=== PATIENT | male | born 1985 | race Caucasian/White ===

== ENCOUNTER 2018-08-28 12:34 | Emergency (ER) | payer OTHER ==
[~2018-08-28] VITALS: Ht 162.6 cm; Wt 101.2 kg
[~2018-08-28 12:34] MED LIST: ALBU0.5N2 NEB; ALBUAER3 IN
[2018-08-28] MEDS ORDERED: IPRATROPIUM BROM 0.5 MG/2.5ML INH SOL NEB ONE (14:30)
[2018-08-28] MEDS ORDERED: ALBUTEROL SULF 2.5 MG/0.5ML(0.5%) NEB SOLN NEB ONE (14:30)
[2018-08-28] MEDS ORDERED: methylPREDNISolone SOD SUCC 125 MG/2 ML VL IM ONE (14:30)
[2018-08-28 14:42] VITALS: BP 137/85
== END 2018-08-28 15:10 | disposition home or self-care (01) ==
LOC: ER 12:38
DX: J45.909 Unspecified asthma, uncomplicated (principal)
CPT/HCPCS: 71046; 93005; 94640; 96372; 99283; J2930; J7611; J7644

== ENCOUNTER 2018-11-09 15:30 | Emergency (ER) | payer OTHER ==
[~2018-11-09] VITALS: Ht 162.6 cm; Wt 90.7 kg
[2018-11-09 16:01] VITALS: BP 150/87
[2018-11-09] MEDS ORDERED: ALBUTEROL SULF 2.5 MG/0.5ML(0.5%) NEB SOLN NEB ONE (16:30)
[2018-11-09] MEDS ORDERED: IPRATROPIUM BROM 0.5 MG/2.5ML INH SOL NEB ONE (16:30)
[2018-11-09] MEDS ORDERED: EPINEPHrine HCL 0.5 ML NEB ONE (16:38)
[2018-11-09] MEDS ORDERED: EPINEPHrine HCL 0.5 ML NEB NEB ONE (16:45)
[2018-11-09] MEDS ORDERED: methylPREDNISolone SOD SUCC 125 MG/2 ML VL ONE (17:04)
[2018-11-09] MEDS ORDERED: methylPREDNISolone SOD SUCC 125 MG/2 ML VL IM ONE (17:15)
== END 2018-11-09 17:42 | disposition home or self-care (01) ==
LOC: ER 15:30
DX: J45.901 Unspecified asthma with (acute) exacerbation (principal)
CPT/HCPCS: 71046; 93005; 94640; 96372; 99284; J2930; J7611; J7644

== ENCOUNTER 2021-12-26 21:47 | Inpatient (IN) | payer OTHER ==
[~2021-12-26] VITALS: Ht 152.4 cm; Wt 116.7 kg
[2021-12-26] MEDS ORDERED: methylPREDNISolone SOD SUCC 125 MG/2 ML VL ONE (21:51)
[2021-12-26] MEDS ORDERED: MAGNESIUM SULFATE 1GM/100ML 100 ML IV ONE ×2 (21:56→21:58)
[2021-12-26 22:04] VITALS: BP 120/92
[2021-12-26 22:11] LABS: Basophils # (auto) 0.1 10 ^3/uL (0-0.2); Basophils % (auto) 0.6 % (0.0-2.0); Eosinophils # (auto) 0.4 10 ^3/uL (0-0.8); Eosinophils % (auto) 4.1 % (0.0-7.0); Hematocrit 45.3 % (41.0-53.0); Hemoglobin 15.3 g/dL (13.5-17.5); Lymphocytes # (auto) 1.1 10 ^3/uL (0.4-5.4); Lymphocytes % (auto) 12.6 % (10.0-50.0); Mean Corpuscular Hemoglobin 28.2 pg (28.0-32.0); Mean Corpuscular Hgb Conc. 33.8 g/dL (32.0-36.0); Mean Corpuscular Volume 83.4 fL (80.0-100.0); Monocytes # (auto) 0.7 10 ^3/uL (0-1.3); Monocytes % (auto) 8.4 % (0.0-12.0); Neutrophils # (auto) 6.5 10 ^3/uL (1.6-8.6); Neutrophils % (auto) 74.3 % (37.0-80.0); Red Blood Cells 5.43 10^6/uL (4.5-5.90); Red Cell Distribution Width 14.5 % (11.8-14.3); White Blood Cell 8.7 10^3/uL (4.4-10.8)
[2021-12-26 22:27] LABS: Albumin 3.6 g/dL (3.4-5.0); Calcium 8.5 mg/dL (8.5-10.1); Magnesium 2.2 mg/dL (1.6-2.6); Potassium 4.3 mmol/L (3.5-5.1)
[2021-12-26] MEDS ORDERED: methylPREDNISolone SOD SUCC 125 MG/2 ML VL IV ONE (22:30)
[2021-12-26] MEDS: MAGNESIUM SULFATE 1GM/100ML 100 ML IV SCH ×5 (22:30→22:56)
[2021-12-26 22:32] LABS: Bilirubin, Total 0.6 mg/dL (0.2-1.0); Total Protein 7.2 g/dL (6.4-8.2)
[2021-12-26] MEDS ORDERED: ALBUTEROL SULF 2.5 MG/0.5ML(0.5%) NEB SOLN NEB ONE (23:25)
[2021-12-26] MEDS ORDERED: IPRATROPIUM BROM 0.5 MG/2.5ML INH SOL NEB ONE (23:30)
[2021-12-27] MEDS ORDERED: TEMAZEPAM 15 MG CAP PO PRN (05:15)
[2021-12-27] MEDS ORDERED: NITROGLYCERIN 0.4 MG SL TAB SL PRN (05:15)
[2021-12-27] MEDS ORDERED: ACETAMINOPHEN 325 MG TAB PO PRN (05:15)
[2021-12-27] MEDS ORDERED: ONDANSETRON HCL 4 MG/2 ML VIAL IV PRN (05:15)
[2021-12-27] MEDS ORDERED: MORPHINE SULFATE INJ 2 MG/ml SYRG IV PRN (05:15)
[2021-12-27] MEDS: methylPREDNISolone SOD SUCC 125 MG/2 ML VL IV SCH (10:18)
[2021-12-27] MEDS: PANTOPRAZOLE 40 MG TAB PO SCH (10:18)
[2021-12-27] MEDS: ALBUTEROL SULF 2.5 MG/0.5ML(0.5%) NEB SOLN NEB PRN ×2 (11:53→19:05)
[2021-12-27] MEDS: IPRATROPIUM BROM 0.5 MG/2.5ML INH SOL NEB PRN ×2 (11:53→19:05)
[2021-12-27] MEDS: RIVAROXABAN 20 MG TAB PO SCH (18:23)
[2021-12-27] MEDS: BUDESONIDE (INHALATION) 0.5 MG/2 ML NEB NEB SCH (19:06)
[2021-12-27 22:00] VITALS: BP 130/87
[2021-12-28] MEDS: methylPREDNISolone SOD SUCC 125 MG/2 ML VL IV SCH ×3 (00:19→21:00)
[2021-12-28] MEDS: ALBUTEROL SULF 2.5 MG/0.5ML(0.5%) NEB SOLN NEB SCH ×4 (00:51→18:53)
[2021-12-28] MEDS: IPRATROPIUM BROM 0.5 MG/2.5ML INH SOL NEB SCH ×4 (00:52→18:53)
[2021-12-28] MEDS ORDERED: CHOL400T19 PO (04:03)
[2021-12-28] MEDS ORDERED: RIVA10TA PO (04:03)
[2021-12-28 05:00] VITALS: BP 137/62
[2021-12-28 06:27] LABS: Basophils # (auto) 0 10 ^3/uL (0-0.2); Basophils % (auto) 0.1 % (0.0-2.0); Eosinophils # (auto) 0 10 ^3/uL (0-0.8); Hematocrit 43.7 % (41.0-53.0); Hemoglobin 14.5 g/dL (13.5-17.5); Lymphocytes # (auto) 0.4 10 ^3/uL (0.4-5.4); Lymphocytes % (auto) 4.4 % (10.0-50.0); Mean Corpuscular Hemoglobin 28.1 pg (28.0-32.0); Mean Corpuscular Hgb Conc. 33.2 g/dL (32.0-36.0); Mean Corpuscular Volume 84.6 fL (80.0-100.0); Monocytes # (auto) 0.5 10 ^3/uL (0-1.3); Monocytes % (auto) 4.9 % (0.0-12.0); Neutrophils % (auto) 90.6 % (37.0-80.0); Red Blood Cells 5.17 10^6/uL (4.5-5.90); Red Cell Distribution Width 14.6 % (11.8-14.3)
[2021-12-28] MEDS: BUDESONIDE (INHALATION) 0.5 MG/2 ML NEB NEB SCH ×2 (06:43→18:53)
[2021-12-28 06:47] LABS: BUN/Creatinine Ratio 17.8; Calcium 9.1 mg/dL (8.5-10.1); Potassium 4.7 mmol/L (3.5-5.1)
[2021-12-28 08:47] VITALS: BP 125/70
[2021-12-28] MEDS: AZITHROMYCIN 250 MG TAB PO SCH (10:39)
[2021-12-28] MEDS: KETOROLAC TROMETH 30 MG/ML 1ML VIAL IV PRN (10:40)
[2021-12-28] MEDS: PANTOPRAZOLE 40 MG TAB PO SCH (10:40)
[2021-12-28] MEDS: CHOLECALCIFEROL (VITD3) 2,000 UNIT CAP/TAB PO SCH (10:40)
[2021-12-28 12:03] VITALS: BP 103/64
[2021-12-28 15:59] VITALS: BP 122/74
[2021-12-28] MEDS: RIVAROXABAN 20 MG TAB PO SCH (17:55)
[2021-12-28] MEDS: THROAT LOZENGES(CEPASTAT) MT PRN (21:01)
[2021-12-28 22:00] VITALS: BP 119/58
[2021-12-29] MEDS: ALBUTEROL SULF 2.5 MG/0.5ML(0.5%) NEB SOLN NEB SCH ×4 (00:14→19:31)
[2021-12-29] MEDS: IPRATROPIUM BROM 0.5 MG/2.5ML INH SOL NEB SCH ×4 (00:14→19:31)
[2021-12-29] MEDS: THROAT LOZENGES(CEPASTAT) MT PRN ×2 (01:43→21:55)
[2021-12-29 05:00] VITALS: BP 92/59
[2021-12-29] MEDS: BUDESONIDE (INHALATION) 0.5 MG/2 ML NEB NEB SCH (06:57)
[2021-12-29 09:00] VITALS: BP 108/78
[2021-12-29] MEDS: methylPREDNISolone SOD SUCC 125 MG/2 ML VL IV SCH ×2 (09:08→21:46)
[2021-12-29] MEDS: CHOLECALCIFEROL (VITD3) 2,000 UNIT CAP/TAB PO SCH (09:08)
[2021-12-29] MEDS: AZITHROMYCIN 250 MG TAB PO SCH (09:08)
[2021-12-29] MEDS: PANTOPRAZOLE 40 MG TAB PO SCH (09:08)
[2021-12-29 13:00] VITALS: BP 128/71
[2021-12-29 17:00] VITALS: BP 121/63
[2021-12-29] MEDS: RIVAROXABAN 20 MG TAB PO SCH (18:15)
[2021-12-29 22:00] VITALS: BP 133/81
[2021-12-30] MEDS: BUDESONIDE (INHALATION) 0.5 MG/2 ML NEB NEB SCH ×3 (01:29→19:31)
[2021-12-30] MEDS: IPRATROPIUM BROM 0.5 MG/2.5ML INH SOL NEB SCH ×5 (01:29→23:57)
[2021-12-30] MEDS: ALBUTEROL SULF 2.5 MG/0.5ML(0.5%) NEB SOLN NEB SCH ×5 (01:30→23:58)
[2021-12-30] MEDS: THROAT LOZENGES(CEPASTAT) MT PRN (01:34)
[2021-12-30 05:00] VITALS: BP 112/66
[2021-12-30 09:00] VITALS: BP 118/71
[2021-12-30] MEDS: PANTOPRAZOLE 40 MG TAB PO SCH (09:54)
[2021-12-30] MEDS: methylPREDNISolone SOD SUCC 125 MG/2 ML VL IV SCH ×2 (09:54→22:03)
[2021-12-30] MEDS: CHOLECALCIFEROL (VITD3) 2,000 UNIT CAP/TAB PO SCH (09:54)
[2021-12-30] MEDS: AZITHROMYCIN 250 MG TAB PO SCH (09:55)
[2021-12-30 13:00] VITALS: BP 134/75
[2021-12-30 16:50] VITALS: BP 135/69
[2021-12-30] MEDS: RIVAROXABAN 20 MG TAB PO SCH (17:55)
[2021-12-30 22:00] VITALS: BP 112/67
[2021-12-30] MEDS: KETOROLAC TROMETH 30 MG/ML 1ML VIAL IV PRN (22:03)
[2021-12-31] MEDS: THROAT LOZENGES(CEPASTAT) MT PRN (01:13)
[2021-12-31] MEDS: BUDESONIDE (INHALATION) 0.5 MG/2 ML NEB NEB SCH (06:38)
[2021-12-31] MEDS: IPRATROPIUM BROM 0.5 MG/2.5ML INH SOL NEB SCH ×2 (06:38→11:18)
[2021-12-31] MEDS: ALBUTEROL SULF 2.5 MG/0.5ML(0.5%) NEB SOLN NEB SCH ×2 (06:38→11:18)
[2021-12-31 08:00] VITALS: BP 120/76
[2021-12-31 08:30] VITALS: BP 122/78
[2021-12-31] MEDS: CHOLECALCIFEROL (VITD3) 2,000 UNIT CAP/TAB PO SCH (09:07)
[2021-12-31] MEDS: AZITHROMYCIN 250 MG TAB PO SCH (09:07)
[2021-12-31] MEDS: PANTOPRAZOLE 40 MG TAB PO SCH (09:07)
[2021-12-31] MEDS: methylPREDNISolone SOD SUCC 125 MG/2 ML VL IV SCH (09:08)
[2021-12-31 13:00] VITALS: BP 120/76
[2021-12-31] MEDS ORDERED: GUAI100S6 PO ×3 (13:26→13:28)
[2021-12-31 13:38] VITALS: BP 120/76
== END 2021-12-31 16:24 | disposition home or self-care (01) | DRG 140 ==
LOC: ER 21:47 → EDBD 21:47 → EDUNIT# 21:47 → TELE 12-27 05:22 → TELE-WESTW 12-27 22:05 → WEST WING 12-28 01:26
PROVIDERS: ADMIT Nurse Practitioner; ATTEND Nurse Practitioner Acute Care
PROC: 5A09357 Assistance with Respiratory Ventilation, Less than 24 Consecutive Hours, Continuous Positive Airway Pressure (ICD-10-PCS; principal; 2021-12-27)
DX: J44.1 Chronic obstructive pulmonary disease with (acute) exacerbation (principal); J96.21 Acute and chronic respiratory failure with hypoxia; E66.01 Morbid (severe) obesity due to excess calories; Z20.822 Contact with and (suspected) exposure to COVID-19; Z88.2 Allergy status to sulfonamides; Z91.041 Radiographic dye allergy status; Z83.3 Family history of diabetes mellitus; Z82.3 Family history of stroke; Z90.49 Acquired absence of other specified parts of digestive tract; Z82.41 Family history of sudden cardiac death; Z85.3 Personal history of malignant neoplasm of breast; Z85.038 Personal history of other malignant neoplasm of large intestine; Z68.43 Body mass index [BMI] 50.0-59.9, adult
CPT/HCPCS: 36415; 36600; 71045; 80048; 80053; 82306; 82805; 82962; 83735; 84443; 84484; 85025; 85379; 85652; 86141; 87426; 87501; 93005; 94640; 96374; 96375; G0378; J1885

== ENCOUNTER 2022-02-08 15:15 | Inpatient (IN) | payer OTHER ==
[~2022-02-08] VITALS: Ht 170.2 cm; Wt 115.9 kg
[~2022-02-08 15:15] MED LIST changes: +CHOL400T19 PO; +GUAI100S6 PO; +RIVA10TA PO
[2022-02-08] MEDS ORDERED: ALBUTEROL SULF 2.5 MG/0.5ML(0.5%) NEB SOLN ONE (15:26)
[2022-02-08] MEDS ORDERED: FUROSEMIDE 100 MG/10ML VIAL IV ONE (15:45)
[2022-02-08] MEDS ORDERED: cefTRIAXone 1GM/50ML D5W 50 ML IV ONE (16:15)
[2022-02-08] MEDS ORDERED: methylPREDNISolone SOD SUCC 125 MG/2 ML VL IV ONE (16:15)
[2022-02-08 17:02] LABS: Basophils # (auto) 0.1 10 ^3/uL (0-0.2); Eosinophils # (auto) 0.2 10 ^3/uL (0-0.8); Eosinophils % (auto) 3.3 % (0.0-7.0); Hematocrit 48.2 % (41.0-53.0); Hemoglobin 15.9 g/dL (13.5-17.5); Lymphocytes # (auto) 0.9 10 ^3/uL (0.4-5.4); Mean Corpuscular Hemoglobin 28.1 pg (28.0-32.0); Mean Corpuscular Hgb Conc. 32.9 g/dL (32.0-36.0); Mean Corpuscular Volume 85.4 fL (80.0-100.0); Monocytes # (auto) 0.6 10 ^3/uL (0-1.3); Monocytes % (auto) 9.8 % (0.0-12.0); Neutrophils # (auto) 4.3 10 ^3/uL (1.6-8.6); Neutrophils % (auto) 70.9 % (37.0-80.0); Nucleated Red Blood Cells % 0.2 %; Red Blood Cells 5.64 10^6/uL (4.5-5.90); Red Cell Distribution Width 14.8 % (11.8-14.3); White Blood Cell 6.1 10^3/uL (4.4-10.8)
[2022-02-08 17:19] LABS: Albumin 3.7 g/dL (3.4-5.0); BUN/Creatinine Ratio 7.4; Calcium 8.9 mg/dL (8.5-10.1); Potassium 4.2 mmol/L (3.5-5.1)
[2022-02-08 17:21] LABS: Bilirubin, Total 0.6 mg/dL (0.2-1.0); Total Protein 7.1 g/dL (6.4-8.2)
[2022-02-08 17:21] LABS: Urine Bacteria NONE SEEN /hpf (None Seen); Urine Blood Negative /uL (Negative); Urine Mucus FEW (None Seen); Urine Specific Gravity 1.008 (1.001-1.035); Urine WBC <1 /hpf (0 - 3)
[2022-02-08 18:30] VITALS: BP 109/62
[2022-02-08] MEDS ORDERED: MORPHINE SULFATE INJ 2 MG/ml SYRG IV PRN (21:45)
[2022-02-08] MEDS ORDERED: NITROGLYCERIN 0.4 MG SL TAB SL PRN (21:45)
[2022-02-08] MEDS ORDERED: AZITHROMYCIN 500MG/ 250ML 250 ML IV ONE (21:45)
[2022-02-08] MEDS ORDERED: ACETAMINOPHEN 325 MG TAB PO PRN (21:45)
[2022-02-08] MEDS ORDERED: ONDANSETRON HCL 4 MG/2 ML VIAL IV PRN (21:45)
[2022-02-08] MEDS ORDERED: TEMAZEPAM 15 MG CAP PO PRN (21:45)
[2022-02-08] MEDS: BUDESONIDE (INHALATION) 0.5 MG/2 ML NEB NEB SCH (22:00)
[2022-02-09 04:49] VITALS: BP 114/73
[2022-02-09 05:00] VITALS: BP 114/73
[2022-02-09] MEDS: BUDESONIDE (INHALATION) 0.5 MG/2 ML NEB NEB SCH ×2 (06:35→20:28)
[2022-02-09] MEDS: IPRATROPIUM BROM 0.5 MG/2.5ML INH SOL NEB SCH ×3 (06:35→20:28)
[2022-02-09] MEDS: ALBUTEROL SULF 2.5 MG/0.5ML(0.5%) NEB SOLN NEB SCH ×3 (06:35→20:28)
[2022-02-09 07:12] LABS: BUN/Creatinine Ratio 11.6; Calcium 9.4 mg/dL (8.5-10.1); Potassium 4.2 mmol/L (3.5-5.1)
[2022-02-09 09:00] VITALS: BP 138/79
[2022-02-09] MEDS: PANTOPRAZOLE 40 MG TAB PO SCH (09:56)
[2022-02-09] MEDS: AZITHROMYCIN 500MG/ 250ML 250 ML IV SCH (09:57)
[2022-02-09] MEDS: methylPREDNISolone SOD SUCC 125 MG/2 ML VL IV SCH ×2 (09:58→21:22)
[2022-02-09] MEDS ORDERED: cefTRIAXone 1GM/50ML D5W 50 ML IV ONE (10:45)
[2022-02-09 13:00] VITALS: BP 107/60
[2022-02-09 17:00] VITALS: BP 101/57
[2022-02-09] MEDS: RIVAROXABAN 20 MG TAB PO SCH (19:16)
[2022-02-09 22:00] VITALS: BP 129/71
[2022-02-10 05:00] VITALS: BP 113/76
[2022-02-10 06:28] LABS: BUN/Creatinine Ratio 18.8; Calcium 9.5 mg/dL (8.5-10.1); Potassium 4.7 mmol/L (3.5-5.1)
[2022-02-10] MEDS: ALBUTEROL SULF 2.5 MG/0.5ML(0.5%) NEB SOLN NEB SCH ×3 (06:30→18:52)
[2022-02-10] MEDS: BUDESONIDE (INHALATION) 0.5 MG/2 ML NEB NEB SCH ×2 (06:30→18:53)
[2022-02-10] MEDS: IPRATROPIUM BROM 0.5 MG/2.5ML INH SOL NEB SCH ×3 (06:30→18:52)
[2022-02-10 06:48] LABS: Basophils # (auto) 0 10 ^3/uL (0-0.2); Basophils % (auto) 0.4 % (0.0-2.0); Eosinophils # (auto) 0 10 ^3/uL (0-0.8); Hematocrit 44.5 % (41.0-53.0); Hemoglobin 14.4 g/dL (13.5-17.5); Lymphocytes # (auto) 0.5 10 ^3/uL (0.4-5.4); Lymphocytes % (auto) 6.3 % (10.0-50.0); Mean Corpuscular Hemoglobin 27.5 pg (28.0-32.0); Mean Corpuscular Hgb Conc. 32.4 g/dL (32.0-36.0); Monocytes # (auto) 0.4 10 ^3/uL (0-1.3); Monocytes % (auto) 5.4 % (0.0-12.0); Neutrophils # (auto) 7.3 10 ^3/uL (1.6-8.6); Neutrophils % (auto) 87.9 % (37.0-80.0); Red Blood Cells 5.23 10^6/uL (4.5-5.90); Red Cell Distribution Width 14.9 % (11.8-14.3); White Blood Cell 8.2 10^3/uL (4.4-10.8)
[2022-02-10 09:00] VITALS: BP 115/69
[2022-02-10] MEDS: cefTRIAXone 1GM/50ML D5W 50 ML IV SCH (10:12)
[2022-02-10] MEDS: AZITHROMYCIN 500MG/ 250ML 250 ML IV SCH (10:13)
[2022-02-10] MEDS: methylPREDNISolone SOD SUCC 125 MG/2 ML VL IV SCH ×2 (10:17→22:08)
[2022-02-10] MEDS: PANTOPRAZOLE 40 MG TAB PO SCH (10:18)
[2022-02-10 13:00] VITALS: BP 118/64
[2022-02-10 17:00] VITALS: BP 138/64
[2022-02-10] MEDS: RIVAROXABAN 20 MG TAB PO SCH (19:01)
[2022-02-10 22:00] VITALS: BP 123/57
[2022-02-11 05:00] VITALS: BP 109/64
[2022-02-11 06:10] LABS: Basophils # (auto) 0 10 ^3/uL (0-0.2); Basophils % (auto) 0.2 % (0.0-2.0); Eosinophils # (auto) 0 10 ^3/uL (0-0.8); Hemoglobin 14.4 g/dL (13.5-17.5); Lymphocytes # (auto) 0.6 10 ^3/uL (0.4-5.4); Lymphocytes % (auto) 7.6 % (10.0-50.0); Mean Corpuscular Hemoglobin 27.5 pg (28.0-32.0); Mean Corpuscular Volume 85.7 fL (80.0-100.0); Monocytes # (auto) 0.5 10 ^3/uL (0-1.3); Monocytes % (auto) 5.8 % (0.0-12.0); Neutrophils % (auto) 86.4 % (37.0-80.0); Red Blood Cells 5.25 10^6/uL (4.5-5.90); Red Cell Distribution Width 14.7 % (11.8-14.3); White Blood Cell 8.1 10^3/uL (4.4-10.8)
[2022-02-11 06:27] LABS: BUN/Creatinine Ratio 18.7; Calcium 9.3 mg/dL (8.5-10.1); Potassium 4.3 mmol/L (3.5-5.1)
[2022-02-11 09:00] VITALS: BP 105/54
[2022-02-11] MEDS: methylPREDNISolone SOD SUCC 125 MG/2 ML VL IV SCH (09:39)
[2022-02-11] MEDS: cefTRIAXone 1GM/50ML D5W 50 ML IV SCH (09:40)
[2022-02-11] MEDS: AZITHROMYCIN 500MG/ 250ML 250 ML IV SCH (09:40)
[2022-02-11] MEDS: PANTOPRAZOLE 40 MG TAB PO SCH (09:40)
[2022-02-11] MEDS ORDERED: PRED20TA2 PO (10:26)
[2022-02-11] MEDS ORDERED: AZIT500T66 PO (10:26)
[2022-02-11 12:18] VITALS: BP 105/54
[2022-02-11 13:00] VITALS: BP 125/75
[2022-02-12] MEDS ORDERED: AZITHROMYCIN 250 MG TAB PO SCH (10:00)
== END 2022-02-11 15:27 | disposition home or self-care (01) | DRG 139 ==
LOC: EDBD 15:15 → ER 15:15 → TELE 21:47 → TELE-CENTR 02-09 04:10
PROVIDERS: ADMIT Nurse Practitioner; ATTEND Internal Medicine Pulmonary Disease
PROC: 5A09357 Assistance with Respiratory Ventilation, Less than 24 Consecutive Hours, Continuous Positive Airway Pressure (ICD-10-PCS; principal; 2022-02-08)
DX: J18.9 Pneumonia, unspecified organism (principal); J96.21 Acute and chronic respiratory failure with hypoxia; I50.9 Heart failure, unspecified; J45.901 Unspecified asthma with (acute) exacerbation; E11.9 Type 2 diabetes mellitus without complications; Z20.822 Contact with and (suspected) exposure to COVID-19; J44.0 Chronic obstructive pulmonary disease with (acute) lower respiratory infection; E66.9 Obesity, unspecified; Z82.41 Family history of sudden cardiac death; Z82.49 Family history of ischemic heart disease and other diseases of the circulatory system; Z80.3 Family history of malignant neoplasm of breast; Z68.41 Body mass index [BMI] 40.0-44.9, adult; Z88.2 Allergy status to sulfonamides; Z88.8 Allergy status to other drugs, medicaments and biological substances
CPT/HCPCS: 36415; 36600; 71045; 71250; 80048; 80053; 81001; 82805; 83880; 84484; 85025; 85379; 87081; 87426; 93005; 94640; 94644; 94660; 96365; 96367; 96375; 99291; G0378; J0696

== ENCOUNTER 2022-05-20 10:17 | Inpatient (IN) | payer OTHER ==
[~2022-05-20] VITALS: Ht 162.6 cm; Wt 119.0 kg
[~2022-05-20 10:17] MED LIST changes: +AZIT500T66 PO; -GUAI100S6 PO; +PRED20TA2 PO
[2022-05-20] MEDS ORDERED: ALBUTEROL SULF 2.5 MG/0.5ML(0.5%) NEB SOLN NEB ONE (10:30)
[2022-05-20] MEDS ORDERED: IPRATROPIUM BROM 0.5 MG/2.5ML INH SOL NEB ONE (10:30)
[2022-05-20] MEDS ORDERED: methylPREDNISolone SOD SUCC 125 MG/2 ML VL IV ONE ×2 (10:45→11:15)
[2022-05-20 10:56] LABS: Basophils # (auto) 0.1 10 ^3/uL (0-0.2); Eosinophils # (auto) 0.4 10 ^3/uL (0-0.8); Hemoglobin 14.1 g/dL (13.5-17.5); Mean Corpuscular Hemoglobin 26.9 pg (28.0-32.0); Monocytes # (auto) 0.7 10 ^3/uL (0-1.3); Neutrophils # (auto) 6.9 10 ^3/uL (1.6-8.6)
[2022-05-20 10:58] LABS: Hematocrit 43.5 % (41.0-53.0); Lymphocytes # (auto) 1.6 10 ^3/uL (0.4-5.4); Lymphocytes % (auto) 16.9 % (10.0-50.0); Mean Corpuscular Hgb Conc. 32.5 g/dL (32.0-36.0); Mean Corpuscular Volume 82.7 fL (80.0-100.0); Monocytes % (auto) 6.7 % (0.0-12.0); Neutrophils % (auto) 71.4 % (37.0-80.0); Nucleated Red Blood Cells % 0.2 %; Red Blood Cells 5.25 10^6/uL (4.5-5.90); Red Cell Distribution Width 13.5 % (11.8-14.3); White Blood Cell 9.7 10^3/uL (4.4-10.8)
[2022-05-20 11:09] LABS: BUN/Creatinine Ratio 10.5 (10.0-20.0); Calcium 8.7 mg/dL (8.5-10.1); Potassium 3.9 mmol/L (3.5-5.1)
[2022-05-20 11:12] LABS: Bilirubin, Total 0.5 mg/dL (0.2-1.0); Total Protein 6.3 g/dL (6.4-8.2)
[2022-05-20] MEDS ORDERED: methylPREDNISolone SOD SUCC 40 MG/ML VL IV ONE (11:30)
[2022-05-20] MEDS ORDERED: MORPHINE SULFATE INJ 2 MG/ml SYRG IV PRN ×2 (15:15)
[2022-05-20] MEDS ORDERED: PANTOPRAZOLE 40 MG/10 ML VIAL INJ IV ONE (15:15)
[2022-05-20] MEDS ORDERED: MAGNESIUM SULFATE 1GM/100ML 100 ML IV ONE (15:15)
[2022-05-20] MEDS ORDERED: ALBUTEROL SULF 2.5 MG/0.5ML(0.5%) NEB SOLN NEB PRN (15:15)
[2022-05-20] MEDS ORDERED: ACETAMINOPHEN 325 MG TAB PO PRN (15:15)
[2022-05-20] MEDS ORDERED: NITROGLYCERIN 0.4 MG SL TAB SL PRN (15:15)
[2022-05-20 16:12] LABS: Cholesterol 129 mg/dL (< 200)
[2022-05-20 16:14] LABS: HDL Cholesterol 47 mg/dL (40-59); LDL Cholesterol 77 mg/dL (< 100); Triglycerides 86 mg/dL (< 150)
[2022-05-20] MEDS: ALBUTEROL SULF 2.5 MG/0.5ML(0.5%) NEB SOLN NEB SCH (18:00)
[2022-05-20] MEDS: IPRATROPIUM BROM 0.5 MG/2.5ML INH SOL NEB PRN (23:11)
[2022-05-20] MEDS: ENOXAPARIN SOD 40 MG/0.4 ML SYRINGE SC SCH ×2 (23:24→23:37)
[2022-05-21] MEDS: HYDROcodone-ACET 5/325MG TAB PO PRN (00:17)
[2022-05-21] MEDS: ALBUTEROL SULF 2.5 MG/0.5ML(0.5%) NEB SOLN NEB SCH ×4 (00:24→19:10)
[2022-05-21 04:00] VITALS: BP 119/66
[2022-05-21 04:13] LABS: Urine Bacteria NONE SEEN /hpf (None Seen); Urine Blood Negative /uL (Negative); Urine Mucus FEW (None Seen); Urine Specific Gravity 1.023 (1.001-1.035); Urine WBC 4 /hpf (0 - 3)
[2022-05-21 04:15] LABS: Alcohol, Urine < 3.0 mg/dL (0-10); Amphetamine Screen, Urine NEGATIVE (NEGATIVE); Barbiturate Scree,Urine NEGATIVE (NEGATIVE); Benzodiazephine Screen, Urine NEGATIVE (NEGATIVE); Cannabinoid Screen, Urine NEGATIVE (NEGATIVE); Cocaine Screen, Urine NEGATIVE (NEGATIVE); Opiate Scree,Urine NEGATIVE (NEGATIVE); Phencyclidine Screen, Urine NEGATIVE (NEGATIVE)
[2022-05-21] MEDS: IPRATROPIUM BROM 0.5 MG/2.5ML INH SOL NEB PRN ×3 (06:27→19:10)
[2022-05-21 06:36] LABS: Basophils # (auto) 0 10 ^3/uL (0-0.2); Basophils % (auto) 0.2 % (0.0-2.0); Eosinophils # (auto) 0 10 ^3/uL (0-0.8); Hematocrit 42.2 % (41.0-53.0); Hemoglobin 14.3 g/dL (13.5-17.5); Lymphocytes # (auto) 0.8 10 ^3/uL (0.4-5.4); Lymphocytes % (auto) 9.6 % (10.0-50.0); Mean Corpuscular Hemoglobin 27.8 pg (28.0-32.0); Mean Corpuscular Hgb Conc. 33.9 g/dL (32.0-36.0); Mean Corpuscular Volume 82.2 fL (80.0-100.0); Monocytes # (auto) 0.6 10 ^3/uL (0-1.3); Monocytes % (auto) 6.4 % (0.0-12.0); Neutrophils # (auto) 7.4 10 ^3/uL (1.6-8.6); Neutrophils % (auto) 83.8 % (37.0-80.0); Red Blood Cells 5.14 10^6/uL (4.5-5.90); Red Cell Distribution Width 13.4 % (11.8-14.3); White Blood Cell 8.8 10^3/uL (4.4-10.8)
[2022-05-21 07:14] LABS: Albumin 3.2 g/dL (3.4-5.0); BUN/Creatinine Ratio 13.2 (10.0-20.0); Bilirubin, Total 0.6 mg/dL (0.2-1.0); Calcium 9.2 mg/dL (8.5-10.1); Total Protein 7.7 g/dL (6.4-8.2)
[2022-05-21] MEDS: methylPREDNISolone SOD SUCC 125 MG/2 ML VL IV SCH ×2 (10:00→22:40)
[2022-05-21] MEDS: ENOXAPARIN SOD 40 MG/0.4 ML SYRINGE SC SCH (10:45)
[2022-05-21] MEDS: PANTOPRAZOLE 40 MG/10 ML VIAL INJ IV SCH (10:45)
[2022-05-21 22:00] VITALS: BP 93/62
[2022-05-21 23:36] VITALS: BP 93/62
[2022-05-22] MEDS: IPRATROPIUM BROM 0.5 MG/2.5ML INH SOL NEB PRN ×4 (00:14→19:32)
[2022-05-22] MEDS: ALBUTEROL SULF 2.5 MG/0.5ML(0.5%) NEB SOLN NEB SCH ×4 (00:14→19:32)
[2022-05-22] MEDS ORDERED: PANT40T PO (00:24)
[2022-05-22] MEDS ORDERED: RIV20T PO (00:24)
[2022-05-22] MEDS ORDERED: FLUT250M2 INH (00:29)
[2022-05-22] MEDS ORDERED: CHOL500033 (00:29)
[2022-05-22] MEDS ORDERED: NYS5LQ (00:29)
[2022-05-22 05:19] VITALS: BP_SYST 111; BP_SYST 166; BP_DIAS 68; BP_DIAS 77
[2022-05-22 09:00] VITALS: BP_SYST 108
[2022-05-22] MEDS: HYDROcodone-ACET 5/325MG TAB PO PRN (09:10)
[2022-05-22] MEDS: methylPREDNISolone SOD SUCC 40 MG/ML VL IV SCH ×2 (10:18→21:19)
[2022-05-22] MEDS: PANTOPRAZOLE 40 MG/10 ML VIAL INJ IV SCH (10:18)
[2022-05-22] MEDS: ENOXAPARIN SOD 40 MG/0.4 ML SYRINGE SC SCH (10:19)
[2022-05-22] MEDS ORDERED: THROAT LOZENGES(CEPASTAT) MT PRN (11:00)
[2022-05-22] MEDS ORDERED: THROAT LOZENGES(CEPASTAT) MT ONE (11:00)
[2022-05-22 13:00] VITALS: BP 123/71
[2022-05-22 16:37] VITALS: BP 130/76
[2022-05-22] MEDS ORDERED: AZITHROMYCIN 250 MG TAB PO ONE (18:15)
[2022-05-22 22:00] VITALS: BP 122/70
[2022-05-23] MEDS: IPRATROPIUM BROM 0.5 MG/2.5ML INH SOL NEB PRN ×3 (00:06→11:37)
[2022-05-23] MEDS: ALBUTEROL SULF 2.5 MG/0.5ML(0.5%) NEB SOLN NEB SCH ×3 (00:06→11:37)
[2022-05-23 05:00] VITALS: BP 103/51
[2022-05-23 09:00] VITALS: BP 124/62
[2022-05-23] MEDS ORDERED: AZITHROMYCIN 250 MG TAB PO SCH (10:00)
[2022-05-23] MEDS: ENOXAPARIN SOD 40 MG/0.4 ML SYRINGE SC SCH (10:50)
[2022-05-23] MEDS: PANTOPRAZOLE 40 MG/10 ML VIAL INJ IV SCH (10:50)
[2022-05-23] MEDS: methylPREDNISolone SOD SUCC 40 MG/ML VL IV SCH (10:50)
[2022-05-23 13:00] VITALS: BP 113/64
[2022-05-23 17:00] VITALS: BP 118/67
== END 2022-05-23 18:49 | disposition home or self-care (01) | DRG 140 ==
LOC: ER 10:17 → EDBD 10:17 → TELE 15:49 → TELE-WESTW 05-21 21:27
PROVIDERS: ADMIT Registered Nurse; ATTEND Internal Medicine
DX: J44.1 Chronic obstructive pulmonary disease with (acute) exacerbation (principal); J96.21 Acute and chronic respiratory failure with hypoxia; I50.9 Heart failure, unspecified; E11.9 Type 2 diabetes mellitus without complications; E66.01 Morbid (severe) obesity due to excess calories; R91.1 Solitary pulmonary nodule; Z20.822 Contact with and (suspected) exposure to COVID-19; J45.901 Unspecified asthma with (acute) exacerbation; Z80.0 Family history of malignant neoplasm of digestive organs; Z87.891 Personal history of nicotine dependence; Z80.3 Family history of malignant neoplasm of breast; Z82.3 Family history of stroke; Z83.3 Family history of diabetes mellitus; Z82.49 Family history of ischemic heart disease and other diseases of the circulatory system; Z82.41 Family history of sudden cardiac death; Z68.41 Body mass index [BMI] 40.0-44.9, adult; Z88.2 Allergy status to sulfonamides; Z91.041 Radiographic dye allergy status; Z71.3 Dietary counseling and surveillance
CPT/HCPCS: 36415; 36600; 71045; 71250; 80053; 80061; 80307; 81001; 82805; 83036; 83880; 84443; 84484; 85025; 85379; 87426; 93005; 94640; 96374; C9113; G0378

== ENCOUNTER 2022-07-27 08:19 | Inpatient (IN) | payer OTHER ==
[~2022-07-27] VITALS: Ht 167.6 cm; Wt 116.5 kg
[~2022-07-27 08:19] MED LIST changes: +CHOL500033; +FLUT250M2 INH; +NYS5LQ; +PANT40T PO; +RIV20T PO
[2022-07-27 08:50] LABS: Eosinophils # (auto) 0.1 10 ^3/uL (0-0.8); Hemoglobin 15.7 g/dL (13.5-17.5); Lymphocytes # (auto) 0.6 10 ^3/uL (0.4-5.4); Monocytes # (auto) 0.3 10 ^3/uL (0-1.3); White Blood Cell 5.2 10^3/uL (4.4-10.8)
[2022-07-27 08:51] LABS: Basophils # (auto) 0.1 10 ^3/uL (0-0.2); Basophils % (auto) 1.4 % (0.0-2.0); Eosinophils % (auto) 1.4 % (0.0-7.0); Hematocrit 46.6 % (41.0-53.0); Lymphocytes % (auto) 11.9 % (10.0-50.0); Mean Corpuscular Hemoglobin 27.1 pg (28.0-32.0); Mean Corpuscular Hgb Conc. 33.6 g/dL (32.0-36.0); Mean Corpuscular Volume 80.5 fL (80.0-100.0); Neutrophils # (auto) 4.1 10 ^3/uL (1.6-8.6); Neutrophils % (auto) 79.3 % (37.0-80.0); Nucleated Red Blood Cells % 0.1 %; Red Blood Cells 5.79 10^6/uL (4.5-5.90); Red Cell Distribution Width 14.2 % (11.8-14.3)
[2022-07-27 09:05] LABS: INR 1.25 (0.9-1.15); Partial Thromboplastin Time 36.1 sec (24.6-33.4)
[2022-07-27] MEDS ORDERED: DexAMETHasone SOD PHOS 10MG/1ML VIAL INJ IV ONE (09:15)
[2022-07-27] MEDS ORDERED: ALBUTEROL SULF 2.5 MG/0.5ML(0.5%) NEB SOLN NEB ONE ×2 (09:15→12:15)
[2022-07-27] MEDS ORDERED: DOXYCYCLINE 100MG/250ML 250 ML IV ONE (09:15)
[2022-07-27] MEDS ORDERED: IPRATROPIUM BROM 0.5 MG/2.5ML INH SOL NEB ONE (09:15)
[2022-07-27 09:36] LABS: Albumin 3.6 g/dL (3.4-5.0); Calcium 8.2 mg/dL (8.5-10.1); Potassium 3.3 mmol/L (3.5-5.1)
[2022-07-27 09:39] LABS: BUN/Creatinine Ratio 9.4 (10.0-20.0); Bilirubin, Total 0.7 mg/dL (0.2-1.0); Total Protein 7.4 g/dL (6.4-8.2)
[2022-07-27] MEDS ORDERED: POTASSIUM CHL 20 Meq TABLET PO ONE (10:00)
[2022-07-27] MEDS ORDERED: MORPHINE SULFATE INJ 2 MG/ml SYRG IV PRN (13:45)
[2022-07-27] MEDS ORDERED: ONDANSETRON HCL 4 MG/2 ML VIAL IV PRN (13:45)
[2022-07-27] MEDS ORDERED: DOCUSATE SOD 100 MG CAP PO PRN (13:45)
[2022-07-27] MEDS ORDERED: ACETAMINOPHEN 325 MG TAB PO PRN (13:45)
[2022-07-27] MEDS ORDERED: NITROGLYCERIN 0.4 MG SL TAB SL PRN (13:45)
[2022-07-27] MEDS: SODIUM CHLOR 0.9% PF (SALINE LOCK) 10ML VIAL/SYR IV SCH (14:00)
[2022-07-27 15:15] VITALS: BP 119/61
[2022-07-27] MEDS: MAGNESIUM SULFATE 1GM/100ML 100 ML IV SCH (21:54)
[2022-07-27] MEDS: HYDROcodone-ACET 5/325MG TAB PO PRN (21:57)
[2022-07-27] MEDS: ALBUTEROL SULF 2.5 MG/0.5ML(0.5%) NEB SOLN NEB PRN (22:08)
[2022-07-27] MEDS: IPRATROPIUM BROM 0.5 MG/2.5ML INH SOL NEB PRN (22:08)
[2022-07-28] MEDS: methylPREDNISolone SOD SUCC 40 MG/ML VL IV SCH ×3 (01:47→22:35)
[2022-07-28] MEDS: Fluticasone-Salmeterol (Advair Diskus 250/50) INHALER IN SCH ×3 (02:17→22:00)
[2022-07-28] MEDS: SODIUM CHLOR 0.9% PF (SALINE LOCK) 10ML VIAL/SYR IV SCH ×4 (02:18→22:35)
[2022-07-28] MEDS ORDERED: MAGNESIUM SULFATE 1GM/100ML 100 ML IV ONE (02:42)
[2022-07-28] MEDS: IPRATROPIUM BROM 0.5 MG/2.5ML INH SOL NEB PRN ×2 (02:48→22:59)
[2022-07-28] MEDS: ALBUTEROL SULF 2.5 MG/0.5ML(0.5%) NEB SOLN NEB PRN ×2 (02:48→22:59)
[2022-07-28] MEDS: MAGNESIUM SULFATE 1GM/100ML 100 ML IV SCH (02:50)
[2022-07-28] MEDS ORDERED: cefTRIAXone 1GM/50ML D5W 50 ML IV ONE (05:15)
[2022-07-28 05:33] LABS: Albumin 3.5 g/dL (3.4-5.0); Calcium 8.9 mg/dL (8.5-10.1); Potassium 4.6 mmol/L (3.5-5.1)
[2022-07-28 05:36] LABS: BUN/Creatinine Ratio 10.9 (10.0-20.0); Bilirubin, Total 0.4 mg/dL (0.2-1.0); Total Protein 7.8 g/dL (6.4-8.2)
[2022-07-28 07:05] LABS: Eosinophils # (auto) 0.1 10 ^3/uL (0-0.8); Hemoglobin 15.6 g/dL (13.5-17.5); Lymphocytes # (auto) 0.6 10 ^3/uL (0.4-5.4); Nucleated Red Blood Cells % 0.1 %
[2022-07-28 07:07] LABS: Basophils # (auto) 0 10 ^3/uL (0-0.2); Basophils % (auto) 0.7 % (0.0-2.0); Eosinophils % (auto) 1.4 % (0.0-7.0); Hematocrit 47.4 % (41.0-53.0); Lymphocytes % (auto) 8.5 % (10.0-50.0); Mean Corpuscular Hemoglobin 26.6 pg (28.0-32.0); Mean Corpuscular Hgb Conc. 32.9 g/dL (32.0-36.0); Mean Corpuscular Volume 80.8 fL (80.0-100.0); Monocytes # (auto) 0.3 10 ^3/uL (0-1.3); Monocytes % (auto) 3.5 % (0.0-12.0); Neutrophils # (auto) 6.3 10 ^3/uL (1.6-8.6); Neutrophils % (auto) 85.9 % (37.0-80.0); Red Blood Cells 5.86 10^6/uL (4.5-5.90); Red Cell Distribution Width 14.7 % (11.8-14.3); White Blood Cell 7.3 10^3/uL (4.4-10.8)
[2022-07-28] MEDS: PANTOPRAZOLE 40 MG TAB PO SCH (10:33)
[2022-07-28] MEDS: DOXYCYCLINE 100MG/250ML 250 ML IV SCH ×2 (11:30→22:35)
[2022-07-28] MEDS: RIVAROXABAN 20 MG TAB PO SCH (11:31)
[2022-07-28 11:36] VITALS: BP 127/77
[2022-07-28 13:00] VITALS: BP 126/72
[2022-07-28 17:00] VITALS: BP 131/75
[2022-07-28 22:00] VITALS: BP 125/83
[2022-07-28] MEDS: NYSTATIN TOPICAL POWDER 15GM TOP SCH (22:35)
[2022-07-28] MEDS: HYDROcodone-ACET 5/325MG TAB PO PRN (23:48)
[2022-07-29 05:00] VITALS: BP 111/61
[2022-07-29] MEDS: SODIUM CHLOR 0.9% PF (SALINE LOCK) 10ML VIAL/SYR IV SCH ×3 (06:40→22:09)
[2022-07-29 08:48] VITALS: BP 122/68
[2022-07-29] MEDS: Fluticasone-Salmeterol (Advair Diskus 250/50) INHALER IN SCH ×2 (10:00→22:00)
[2022-07-29] MEDS: methylPREDNISolone SOD SUCC 40 MG/ML VL IV SCH ×2 (10:07→22:09)
[2022-07-29] MEDS: PANTOPRAZOLE 40 MG TAB PO SCH (10:07)
[2022-07-29] MEDS: RIVAROXABAN 20 MG TAB PO SCH (10:07)
[2022-07-29] MEDS: NYSTATIN TOPICAL POWDER 15GM TOP SCH ×2 (10:13→22:10)
[2022-07-29] MEDS: DOXYCYCLINE 100MG/250ML 250 ML IV SCH ×2 (11:29→22:09)
[2022-07-29 12:44] VITALS: BP 114/66
[2022-07-29 12:53] LABS: Hepatitis C Antibody Negative (Negative)
[2022-07-29 17:04] VITALS: BP 117/70
[2022-07-29 22:00] VITALS: BP 119/64
[2022-07-29] MEDS: HYDROcodone-ACET 5/325MG TAB PO PRN (22:09)
[2022-07-30 05:00] VITALS: BP 119/72
[2022-07-30] MEDS: SODIUM CHLOR 0.9% PF (SALINE LOCK) 10ML VIAL/SYR IV SCH ×2 (05:35→14:01)
[2022-07-30 09:00] VITALS: BP 123/71
[2022-07-30] MEDS: RIVAROXABAN 20 MG TAB PO SCH (09:06)
[2022-07-30] MEDS: methylPREDNISolone SOD SUCC 40 MG/ML VL IV SCH ×2 (09:06→21:11)
[2022-07-30] MEDS: NYSTATIN TOPICAL POWDER 15GM TOP SCH (09:06)
[2022-07-30] MEDS: Fluticasone-Salmeterol (Advair Diskus 250/50) INHALER IN SCH ×2 (09:06→22:00)
[2022-07-30] MEDS: PANTOPRAZOLE 40 MG TAB PO SCH (09:06)
[2022-07-30] MEDS ORDERED: guaiFENesin-DM 100/10mg/5ml SYR PO PRN (09:30)
[2022-07-30] MEDS: DOXYCYCLINE 100MG/250ML 250 ML IV SCH (10:04)
[2022-07-30 13:00] VITALS: BP 127/75
[2022-07-30 14:45] VITALS: BP 123/71
[2022-07-30 17:00] VITALS: BP 133/71
[2022-07-30] MEDS: HYDROcodone-ACET 5/325MG TAB PO PRN (21:11)
[2022-07-30] MEDS: DOXYCYCLINE 100 MG TAB/CAP PO SCH (21:11)
[2022-07-30 22:00] VITALS: BP 135/88
[2022-07-31] MEDS: NYSTATIN TOPICAL POWDER 15GM TOP SCH ×2 (04:17→09:30)
[2022-07-31] MEDS: SODIUM CHLOR 0.9% PF (SALINE LOCK) 10ML VIAL/SYR IV SCH ×2 (04:17→06:16)
[2022-07-31 05:00] VITALS: BP 133/80
[2022-07-31] MEDS: HYDROcodone-ACET 5/325MG TAB PO PRN (08:33)
[2022-07-31 09:00] VITALS: BP 120/77
[2022-07-31] MEDS: RIVAROXABAN 20 MG TAB PO SCH (09:25)
[2022-07-31] MEDS: DOXYCYCLINE 100 MG TAB/CAP PO SCH (09:25)
[2022-07-31] MEDS: PANTOPRAZOLE 40 MG TAB PO SCH (09:26)
[2022-07-31] MEDS: methylPREDNISolone SOD SUCC 40 MG/ML VL IV SCH (09:27)
[2022-07-31] MEDS: Fluticasone-Salmeterol (Advair Diskus 250/50) INHALER IN SCH (09:38)
[2022-07-31] MEDS ORDERED: METH4PAK PO (11:35)
[2022-07-31] MEDS ORDERED: NYST150P2 XX (11:35)
[2022-07-31 13:00] VITALS: BP 134/74
[2022-07-31 13:10] VITALS: BP 134/74
== END 2022-07-31 16:11 | disposition home or self-care (01) | DRG 140 ==
LOC: EDBD 08:19 → ER 08:19 → EDUNIT# 08:19 → TELE 13:42 → TELE-WESTW 07-28 10:50
PROVIDERS: ADMIT Nurse Practitioner Family; ATTEND Internal Medicine Geriatric Medicine
DX: J44.1 Chronic obstructive pulmonary disease with (acute) exacerbation (principal); J96.01 Acute respiratory failure with hypoxia; J45.902 Unspecified asthma with status asthmaticus; E11.9 Type 2 diabetes mellitus without complications; B34.9 Viral infection, unspecified; B35.6 Tinea cruris; I50.9 Heart failure, unspecified; B37.9 Candidiasis, unspecified; E66.01 Morbid (severe) obesity due to excess calories; Z86.718 Personal history of other venous thrombosis and embolism; Z80.0 Family history of malignant neoplasm of digestive organs; Z80.3 Family history of malignant neoplasm of breast; Z82.3 Family history of stroke; Z82.41 Family history of sudden cardiac death; Z82.49 Family history of ischemic heart disease and other diseases of the circulatory system; Z83.3 Family history of diabetes mellitus; Z87.09 Personal history of other diseases of the respiratory system; Z88.2 Allergy status to sulfonamides; Z91.041 Radiographic dye allergy status; Z68.41 Body mass index [BMI] 40.0-44.9, adult
CPT/HCPCS: 36415; 71045; 71250; 80053; 83735; 83880; 84484; 85025; 85379; 85610; 85730; 86803; 87340; 93005; 94640; 96365; 96367; 99291; G0378; J0696; J1100; J3490

== ENCOUNTER 2022-08-10 01:49 | Inpatient (IN) | payer OTHER ==
[~2022-08-10] VITALS: Ht 162.6 cm; Wt 120.0 kg
[~2022-08-10 01:49] MED LIST changes: -AZIT500T66 PO; +METH4PAK PO; +NYST150P2 XX; -RIVA10TA PO
[2022-08-10] MEDS ORDERED: ALBUTEROL SULF 2.5 MG/0.5ML(0.5%) NEB SOLN NEB ONE (02:00)
[2022-08-10] MEDS ORDERED: IPRATROPIUM BROM 0.5 MG/2.5ML INH SOL NEB ONE (02:00)
[2022-08-10] MEDS ORDERED: methylPREDNISolone SOD SUCC 125 MG/2 ML VL IV ONE (02:15)
[2022-08-10] MEDS ORDERED: DexAMETHasone SOD PHOS 10MG/1ML VIAL INJ IV ONE (02:15)
[2022-08-10 02:48] LABS: Hemoglobin 14.5 g/dL (13.5-17.5); Lymphocytes # (auto) 2.1 10 ^3/uL (0.4-5.4); Mean Corpuscular Hemoglobin 26.8 pg (28.0-32.0); Monocytes # (auto) 0.7 10 ^3/uL (0-1.3); Monocytes % (auto) 6.7 % (0.0-12.0); Neutrophils # (auto) 7.6 10 ^3/uL (1.6-8.6); Nucleated Red Blood Cells % 0.1 %
[2022-08-10 02:50] LABS: Basophils # (auto) 0 10 ^3/uL (0-0.2); Basophils % (auto) 0.4 % (0.0-2.0); Eosinophils # (auto) 0.4 10 ^3/uL (0-0.8); Eosinophils % (auto) 3.4 % (0.0-7.0); Hematocrit 44.1 % (41.0-53.0); Lymphocytes % (auto) 19.6 % (10.0-50.0); Mean Corpuscular Hgb Conc. 32.9 g/dL (32.0-36.0); Mean Corpuscular Volume 81.5 fL (80.0-100.0); Neutrophils % (auto) 69.9 % (37.0-80.0); Red Blood Cells 5.41 10^6/uL (4.5-5.90); Red Cell Distribution Width 14.9 % (11.8-14.3); White Blood Cell 10.9 10^3/uL (4.4-10.8)
[2022-08-10 03:05] LABS: INR 0.97 (0.9-1.15)
[2022-08-10 03:09] LABS: Albumin 2.8 g/dL (3.4-5.0); BUN/Creatinine Ratio 14.7 (10.0-20.0); Calcium 8.1 mg/dL (8.5-10.1); Potassium 3.3 mmol/L (3.5-5.1)
[2022-08-10 03:12] LABS: Bilirubin, Total 0.4 mg/dL (0.2-1.0); Total Protein 6.2 g/dL (6.4-8.2)
[2022-08-10 04:16] VITALS: BP 133/79
[2022-08-10 06:49] VITALS: BP 121/79
[2022-08-10] MEDS ORDERED: POTASSIUM EFFERVESENT TAB 25 MEQ PO ONE (09:00)
[2022-08-10] MEDS ORDERED: ALBUTEROL SULF 2.5 MG/0.5ML(0.5%) NEB SOLN NEB PRN (09:00)
[2022-08-10] MEDS: methylPREDNISolone SOD SUCC 125 MG/2 ML VL IV SCH ×2 (09:39→22:16)
[2022-08-10] MEDS: RIVAROXABAN 20 MG TAB PO SCH (09:39)
[2022-08-10] MEDS: PANTOPRAZOLE 40 MG TAB PO SCH (09:39)
[2022-08-10] MEDS: ALBUTEROL SULF 2.5 MG/0.5ML(0.5%) NEB SOLN NEB SCH ×4 (10:35→22:13)
[2022-08-10] MEDS: IPRATROPIUM BROM 0.5 MG/2.5ML INH SOL NEB SCH ×4 (10:35→22:13)
[2022-08-10 10:36] VITALS: BP 139/73
[2022-08-10 11:18] VITALS: BP 139/73
[2022-08-10] MEDS: ACETAMINOPHEN 325 MG TAB PO PRN (11:42)
[2022-08-11] MEDS: ALBUTEROL SULF 2.5 MG/0.5ML(0.5%) NEB SOLN NEB SCH ×6 (02:14→22:43)
[2022-08-11] MEDS: IPRATROPIUM BROM 0.5 MG/2.5ML INH SOL NEB SCH ×6 (02:14→22:43)
[2022-08-11 05:33] LABS: Basophils # (auto) 0 10 ^3/uL (0-0.2); Basophils % (auto) 0.1 % (0.0-2.0); Eosinophils # (auto) 0 10 ^3/uL (0-0.8); Hemoglobin 14.3 g/dL (13.5-17.5); Lymphocytes # (auto) 0.5 10 ^3/uL (0.4-5.4); Monocytes # (auto) 0.3 10 ^3/uL (0-1.3)
[2022-08-11] MEDS: ACETAMINOPHEN 325 MG TAB PO PRN (05:45)
[2022-08-11 05:50] LABS: Hematocrit 44.3 % (41.0-53.0); Lymphocytes % (auto) 5.1 % (10.0-50.0); Mean Corpuscular Hemoglobin 26.7 pg (28.0-32.0); Mean Corpuscular Hgb Conc. 32.3 g/dL (32.0-36.0); Mean Corpuscular Volume 82.5 fL (80.0-100.0); Monocytes % (auto) 2.8 % (0.0-12.0); Neutrophils # (auto) 8.8 10 ^3/uL (1.6-8.6); Red Blood Cells 5.37 10^6/uL (4.5-5.90); Red Cell Distribution Width 15.2 % (11.8-14.3); White Blood Cell 9.6 10^3/uL (4.4-10.8)
[2022-08-11 08:24] LABS: Albumin 3.2 g/dL (3.4-5.0); Calcium 9.1 mg/dL (8.5-10.1); Potassium 4.5 mmol/L (3.5-5.1)
[2022-08-11 08:29] LABS: BUN/Creatinine Ratio 17.3 (10.0-20.0); Bilirubin, Total 0.6 mg/dL (0.2-1.0); Total Protein 6.8 g/dL (6.4-8.2)
[2022-08-11] MEDS: RIVAROXABAN 20 MG TAB PO SCH (09:07)
[2022-08-11] MEDS: methylPREDNISolone SOD SUCC 125 MG/2 ML VL IV SCH ×2 (09:07→22:43)
[2022-08-11] MEDS: PANTOPRAZOLE 40 MG TAB PO SCH (09:07)
[2022-08-11] MEDS ORDERED: DEXTROSE (50%) 50ML SYRG IV PRN (09:30)
[2022-08-11] MEDS: ACCU-CHEK COMFORT CURVE STRIP VI SCH ×3 (11:18→22:35)
[2022-08-11] MEDS: InsuLIN REG 1unit/0.01ml Soln (100units/ml) SC SCH ×3 (11:21→22:44)
[2022-08-11] MEDS ORDERED: CHOLECALCIFEROL (VITD3) 1,000UNIT=25mCg TAB PO ONE (15:30)
[2022-08-11] MEDS ORDERED: NYSTATIN (MOUTH-THROAT) 500,000 UNITS/5 ML SUSP MT ONE (15:30)
[2022-08-11] MEDS: NYSTATIN (MOUTH-THROAT) 500,000 UNITS/5 ML SUSP MT SCH ×2 (18:00→22:43)
[2022-08-12] MEDS: IPRATROPIUM BROM 0.5 MG/2.5ML INH SOL NEB SCH ×6 (02:29→22:26)
[2022-08-12] MEDS: ALBUTEROL SULF 2.5 MG/0.5ML(0.5%) NEB SOLN NEB SCH ×6 (02:29→22:26)
[2022-08-12 06:00] LABS: Hematocrit 42.2 % (41.0-53.0); Hemoglobin 13.9 g/dL (13.5-17.5)
[2022-08-12 06:04] LABS: Basophils # (auto) 0 10 ^3/uL (0-0.2); Basophils % (auto) 0.1 % (0.0-2.0); Eosinophils # (auto) 0 10 ^3/uL (0-0.8); Lymphocytes # (auto) 0.7 10 ^3/uL (0.4-5.4); Mean Corpuscular Hemoglobin 26.5 pg (28.0-32.0); Mean Corpuscular Hgb Conc. 32.9 g/dL (32.0-36.0); Mean Corpuscular Volume 80.6 fL (80.0-100.0); Monocytes # (auto) 0.5 10 ^3/uL (0-1.3); Monocytes % (auto) 4.5 % (0.0-12.0); Neutrophils # (auto) 10.2 10 ^3/uL (1.6-8.6); Neutrophils % (auto) 89.4 % (37.0-80.0); Red Blood Cells 5.24 10^6/uL (4.5-5.90); Red Cell Distribution Width 15.1 % (11.8-14.3); White Blood Cell 11.4 10^3/uL (4.4-10.8)
[2022-08-12 06:11] LABS: Potassium 4.3 mmol/L (3.5-5.1)
[2022-08-12] MEDS: ACETAMINOPHEN 325 MG TAB PO PRN (06:11)
[2022-08-12 06:25] LABS: Albumin 3.3 g/dL (3.4-5.0); BUN/Creatinine Ratio 20.9 (10.0-20.0); Bilirubin, Total 0.6 mg/dL (0.2-1.0); Calcium 8.9 mg/dL (8.5-10.1); Total Protein 6.1 g/dL (6.4-8.2)
[2022-08-12] MEDS: ACCU-CHEK COMFORT CURVE STRIP VI SCH ×4 (06:53→22:15)
[2022-08-12] MEDS: InsuLIN REG 1unit/0.01ml Soln (100units/ml) SC SCH ×4 (07:06→22:17)
[2022-08-12] MEDS: CHOLECALCIFEROL (VITD3) 1,000UNIT=25mCg TAB PO SCH (10:11)
[2022-08-12] MEDS: RIVAROXABAN 20 MG TAB PO SCH (10:11)
[2022-08-12] MEDS: PANTOPRAZOLE 40 MG TAB PO SCH (10:11)
[2022-08-12] MEDS: NYSTATIN (MOUTH-THROAT) 500,000 UNITS/5 ML SUSP MT SCH ×4 (10:11→22:15)
[2022-08-12] MEDS: methylPREDNISolone SOD SUCC 125 MG/2 ML VL IV SCH ×2 (10:12→22:15)
[2022-08-12 11:11] VITALS: BP 124/61
[2022-08-12] MEDS: INSULIN LANTUS (GLARGINE) 1 /0.01ml (100units/ml) SC SCH (15:53)
[2022-08-12 17:00] VITALS: BP 122/77
[2022-08-12 17:26] LABS: Hepatitis A Total Antibody Positive (Negative)
[2022-08-12 20:22] LABS: Hepatitis C Antibody Negative (Negative)
[2022-08-12 21:10] LABS: Hepatitis B Surface Antibody Negative (Negative)
[2022-08-12 22:00] VITALS: BP 135/71
[2022-08-13] MEDS: ALBUTEROL SULF 2.5 MG/0.5ML(0.5%) NEB SOLN NEB SCH ×4 (02:00→14:35)
[2022-08-13] MEDS: IPRATROPIUM BROM 0.5 MG/2.5ML INH SOL NEB SCH ×4 (02:00→14:35)
[2022-08-13 05:00] VITALS: BP 117/63
[2022-08-13 06:34] LABS: Basophils # (auto) 0 10 ^3/uL (0-0.2); Basophils % (auto) 0.2 % (0.0-2.0); Eosinophils # (auto) 0 10 ^3/uL (0-0.8); Hematocrit 42.3 % (41.0-53.0); Lymphocytes # (auto) 0.7 10 ^3/uL (0.4-5.4); Lymphocytes % (auto) 7.2 % (10.0-50.0); Mean Corpuscular Hgb Conc. 33.1 g/dL (32.0-36.0); Mean Corpuscular Volume 81.4 fL (80.0-100.0); Monocytes # (auto) 0.6 10 ^3/uL (0-1.3); Monocytes % (auto) 6.5 % (0.0-12.0); Neutrophils # (auto) 8.5 10 ^3/uL (1.6-8.6); Neutrophils % (auto) 86.1 % (37.0-80.0); Nucleated Red Blood Cells % 0.1 %; Red Cell Distribution Width 15.2 % (11.8-14.3); White Blood Cell 9.9 10^3/uL (4.4-10.8)
[2022-08-13 06:38] LABS: Potassium 4.6 mmol/L (3.5-5.1)
[2022-08-13 06:48] LABS: BUN/Creatinine Ratio 23.9 (10.0-20.0); Calcium 9.1 mg/dL (8.5-10.1)
[2022-08-13] MEDS: NYSTATIN (MOUTH-THROAT) 500,000 UNITS/5 ML SUSP MT SCH (06:54)
[2022-08-13] MEDS: InsuLIN REG 1unit/0.01ml Soln (100units/ml) SC SCH ×2 (06:55→11:40)
[2022-08-13] MEDS: ACCU-CHEK COMFORT CURVE STRIP VI SCH ×2 (06:55→11:21)
[2022-08-13] MEDS: INSULIN LANTUS (GLARGINE) 1 /0.01ml (100units/ml) SC SCH (07:19)
[2022-08-13 08:50] VITALS: BP 120/75
[2022-08-13] MEDS: CHOLECALCIFEROL (VITD3) 1,000UNIT=25mCg TAB PO SCH (10:00)
[2022-08-13] MEDS ORDERED: METF-370 PO (10:08)
[2022-08-13] MEDS ORDERED: PRED20TA2 PO (10:08)
[2022-08-13] MEDS: PANTOPRAZOLE 40 MG TAB PO SCH (10:59)
[2022-08-13] MEDS: methylPREDNISolone SOD SUCC 125 MG/2 ML VL IV SCH (10:59)
[2022-08-13] MEDS: RIVAROXABAN 20 MG TAB PO SCH (11:00)
[2022-08-13 13:00] VITALS: BP 124/74
== END 2022-08-13 15:20 | disposition home or self-care (01) | DRG 133 ==
LOC: EDBD 01:49 → ER 01:49 → OVERFLOW 08:57 → CENTRAL 08-12 10:40
PROVIDERS: ADMIT Nurse Practitioner Family; ATTEND Internal Medicine Pulmonary Disease
PROC: 5A09357 Assistance with Respiratory Ventilation, Less than 24 Consecutive Hours, Continuous Positive Airway Pressure (ICD-10-PCS; principal; 2022-08-10)
DX: J96.01 Acute respiratory failure with hypoxia (principal); N17.0 Acute kidney failure with tubular necrosis; E44.0 Moderate protein-calorie malnutrition; B37.0 Candidal stomatitis; J45.901 Unspecified asthma with (acute) exacerbation; E11.65 Type 2 diabetes mellitus with hyperglycemia; I50.9 Heart failure, unspecified; E66.01 Morbid (severe) obesity due to excess calories; E87.6 Hypokalemia; J98.11 Atelectasis; D72.829 Elevated white blood cell count, unspecified; E55.9 Vitamin D deficiency, unspecified; K21.9 Gastro-esophageal reflux disease without esophagitis; T38.0X5A Adverse effect of glucocorticoids and synthetic analogues, initial encounter; Z79.01 Long term (current) use of anticoagulants; Z79.51 Long term (current) use of inhaled steroids; Z86.718 Personal history of other venous thrombosis and embolism; Z88.2 Allergy status to sulfonamides; Z91.041 Radiographic dye allergy status; Z82.3 Family history of stroke; Z80.0 Family history of malignant neoplasm of digestive organs; Z83.3 Family history of diabetes mellitus; Z82.49 Family history of ischemic heart disease and other diseases of the circulatory system; Z80.3 Family history of malignant neoplasm of breast; Z68.42 Body mass index [BMI] 45.0-49.9, adult
CPT/HCPCS: 36415; 36600; 71045; 80048; 80053; 82805; 82962; 83036; 83880; 84484; 85025; 85379; 85610; 85730; 86704; 86706; 86708; 86803; 87340; 93005; 93971; 94640; 94660; 96374; 96375; 99291; G0378; J1100; J1815

== ENCOUNTER 2023-01-12 08:01 | Inpatient (IN) | payer OTHER ==
[~2023-01-12] VITALS: Ht 162.6 cm; Wt 113.8 kg
[2023-01-12] VITALS (10 sets, daily range): BP systolic 118; BP diastolic 70–72; PULSE 70–120; RESP 14–20; TEMP 96.7–98.2; O2SAT 92–99
[~2023-01-12 08:01] MED LIST changes: +METF-370 PO
[2023-01-12] MEDS ORDERED: IPRATROPIUM BROM 0.5 MG/2.5ML INH SOL HHN ONE (10:45)
[2023-01-12] MEDS ORDERED: methylPREDNISolone SOD SUCC 125 MG/2 ML VL IV ONE (10:45)
[2023-01-12] MEDS ORDERED: ALBUTEROL SULF 2.5 MG/0.5ML(0.5%) NEB SOLN HHN ONE (10:45)
[2023-01-12 11:16] LABS: Basophils # (auto) 0.1 10 ^3/uL (0-0.2); Hemoglobin 16.1 g/dL (13.5-17.5); Lymphocytes # (auto) 1.5 10 ^3/uL (0.4-5.4); Monocytes # (auto) 0.5 10 ^3/uL (0-1.3); Red Cell Distribution Width 14.1 % (11.8-14.3)
[2023-01-12 11:18] LABS: Basophils % (auto) 0.9 % (0.0-2.0); Eosinophils # (auto) 0.3 10 ^3/uL (0-0.8); Eosinophils % (auto) 4.1 % (0.0-7.0); Hematocrit 48.7 % (41.0-53.0); Mean Corpuscular Hemoglobin 26.5 pg (28.0-32.0); Mean Corpuscular Hgb Conc. 33.1 g/dL (32.0-36.0); Monocytes % (auto) 6.5 % (0.0-12.0); Neutrophils # (auto) 5.8 10 ^3/uL (1.6-8.6); Neutrophils % (auto) 70.5 % (37.0-80.0); Nucleated Red Blood Cells % 0.2 %; Red Blood Cells 6.09 10^6/uL (4.5-5.90); White Blood Cell 8.2 10^3/uL (4.4-10.8)
[2023-01-12 11:53] LABS: Alkaline Phosphatase 50 U/L (46-116); Anion Gap 12 (5-15); Carbon Dioxide 22 mmol/L (20-30); Chloride 104 mmol/L (98-107); Glucose 54 mg/dL (74-106); Potassium 4.2 mmol/L (3.5-5.1); Sodium 138 mmol/L (136-145)
[2023-01-12 11:54] LABS: Albumin 2.7 g/dL (3.2-4.8); Aspartate Aminotransferase 19 U/L (13-40)
[2023-01-12 11:55] LABS: Alanine Aminotransferase < 9 U/L (7-40); BUN/Creatinine Ratio 11.9 (10.0-20.0); Bilirubin, Total < 0.2 mg/dL (0.2-1.0); Blood Urea Nitrogen < 5 mg/dL (9-23); Total Protein 4.1 g/dL (5.7-8.2)
[2023-01-12 11:58] LABS: Calcium 5.2 mg/dL (8.5-10.1)
[2023-01-12] MEDS ORDERED: CALCIUM CHL 100MG/ML 500 MG in D5W 5% 100 ML IV ONE (12:15)
[2023-01-12] MEDS ORDERED: CALCIUM GLUC 1,000mg/50ml-NS 50 ML IV ONE (13:00)
[2023-01-12] MEDS ORDERED: ACETAMINOPHEN 325 MG TAB PO PRN (13:00)
[2023-01-12] MEDS ORDERED: ALBUTEROL MEDNEB 2.5 mg/3ml NEB NEB PRN (13:00)
[2023-01-12] MEDS ORDERED: DEXTROSE (50%) 50ML SYRG IV PRN (13:00)
[2023-01-12 14:07] LABS: COVID19 ANTIGEN SOFIA FIA NEGATIVE (NEGATIVE)
[2023-01-12 14:13] LABS: LDL Cholesterol 83 mg/dL (< 100); Triglycerides 127 mg/dL (< 150)
[2023-01-12 14:15] LABS: Cholesterol 139 mg/dL (< 200); HDL Cholesterol 46 mg/dL (40-59)
[2023-01-12] MEDS: ALBUTEROL MEDNEB 2.5 mg/3ml NEB NEB SCH ×3 (14:25→22:12)
[2023-01-12] MEDS: MAGNESIUM SULFATE 1GM/100ML 100 ML IV SCH ×2 (16:47→17:23)
[2023-01-12] MEDS: InsuLIN REG 1unit/0.01ml Soln (100units/ml) SC SCH ×2 (18:01→21:58)
[2023-01-12] MEDS: ACCU-CHEK COMFORT CURVE STRIP VI SCH ×2 (18:01→22:03)
[2023-01-12] MEDS: RIVAROXABAN 20 MG TAB PO SCH (20:06)
[2023-01-12] MEDS: methylPREDNISolone SOD SUCC 40 MG/ML VL IV SCH (21:56)
[2023-01-12] MEDS ORDERED: guaiFENesin-DM 100/10mg/5ml SYR PO PRN (22:15)
[2023-01-12] MEDS ORDERED: MELATONIN 5 MG TAB PO ONE (22:30)
[2023-01-12] MEDS ORDERED: CALCIUM CHL 100MG/ML 1,000 MG in D5W 5% 100 ML IV SCH (23:00)
[2023-01-12] MEDS: IBUPROFEN 600 MG TAB PO PRN (23:13)
[2023-01-13] VITALS (21 sets, daily range): BP systolic 106–125; BP diastolic 58–70; PULSE 52–89; RESP 16–20; TEMP 97.5–98; O2SAT 91–99
[2023-01-13] MEDS: ALBUTEROL MEDNEB 2.5 mg/3ml NEB NEB SCH ×6 (02:05→22:44)
[2023-01-13] MEDS: ACCU-CHEK COMFORT CURVE STRIP VI SCH ×4 (06:47→21:53)
[2023-01-13] MEDS: InsuLIN REG 1unit/0.01ml Soln (100units/ml) SC SCH ×4 (06:50→21:53)
[2023-01-13 07:25] LABS: Basophils # (auto) 0 10 ^3/uL (0-0.2); Eosinophils # (auto) 0 10 ^3/uL (0-0.8); Nucleated Red Blood Cells % 0.1 %
[2023-01-13 07:26] LABS: Basophils % (auto) 0.1 % (0.0-2.0); Hematocrit 46.1 % (41.0-53.0); Lymphocytes # (auto) 0.6 10 ^3/uL (0.4-5.4); Lymphocytes % (auto) 7.5 % (10.0-50.0); Mean Corpuscular Hgb Conc. 32.6 g/dL (32.0-36.0); Mean Corpuscular Volume 79.9 fL (80.0-100.0); Monocytes # (auto) 0.4 10 ^3/uL (0-1.3); Monocytes % (auto) 4.2 % (0.0-12.0); Neutrophils # (auto) 7.4 10 ^3/uL (1.6-8.6); Neutrophils % (auto) 88.2 % (37.0-80.0); Red Blood Cells 5.78 10^6/uL (4.5-5.90); White Blood Cell 8.4 10^3/uL (4.4-10.8)
[2023-01-13 07:42] LABS: Alanine Aminotransferase 20 U/L (7-40); Albumin 4.1 g/dL (3.2-4.8); Alkaline Phosphatase 122 U/L (46-116); Anion Gap 6 (5-15); Aspartate Aminotransferase 15 U/L (13-40); BUN/Creatinine Ratio 10.5 (10.0-20.0); Bilirubin, Total 0.2 mg/dL (0.2-1.0); Blood Urea Nitrogen 11 mg/dL (9-23); Calcium 9.3 mg/dL (8.5-10.1); Carbon Dioxide 27 mmol/L (20-30); Chloride 106 mmol/L (98-107); Glucose 277 mg/dL (74-106); Potassium 4.2 mmol/L (3.5-5.1); Sodium 139 mmol/L (136-145); Total Protein 6.6 g/dL (5.7-8.2)
[2023-01-13] MEDS: PANTOPRAZOLE 40 MG TAB PO SCH (09:56)
[2023-01-13] MEDS: methylPREDNISolone SOD SUCC 40 MG/ML VL IV SCH ×2 (09:57→21:47)
[2023-01-13 09:58] LABS: Hepatitis B Surface Antigen Negative (Negative)
[2023-01-13] MEDS ORDERED: ENOXAPARIN SOD 40 MG/0.4 ML SYRINGE SC SCH (10:00)
[2023-01-13 10:14] LABS: Hepatitis C Antibody Negative (Negative)
[2023-01-13] MEDS: AZITHROMYCIN 500MG/ 250ML 250 ML IV SCH (18:27)
[2023-01-13] MEDS: RIVAROXABAN 20 MG TAB PO SCH (18:38)
[2023-01-13] MEDS: IBUPROFEN 600 MG TAB PO PRN (21:58)
[2023-01-14] VITALS (13 sets, daily range): BP systolic 105–121; BP diastolic 60–74; PULSE 53–82; RESP 16–19; TEMP 36.6; O2SAT 93–99
[2023-01-14] MEDS ORDERED: IPRATROPIUM BROM 0.5 MG/2.5ML INH SOL NEB SCH
[2023-01-14] MEDS: ALBUTEROL MEDNEB 2.5 mg/3ml NEB NEB SCH ×4 (02:39→14:11)
[2023-01-14 06:41] LABS: Alanine Aminotransferase 17 U/L (7-40); Albumin 4.3 g/dL (3.2-4.8); Alkaline Phosphatase 82 U/L (46-116); Anion Gap 6 (5-15); Aspartate Aminotransferase 11 U/L (13-40); BUN/Creatinine Ratio 16.7 (10.0-20.0); Blood Urea Nitrogen 17 mg/dL (9-23); Calcium 9.2 mg/dL (8.7-10.4); Carbon Dioxide 29 mmol/L (20-30); Chloride 102 mmol/L (98-107); Glucose 328 mg/dL (74-106); Potassium 4.3 mmol/L (3.5-5.1); Sodium 137 mmol/L (136-145)
[2023-01-14 06:42] LABS: Bilirubin, Total 0.2 mg/dL (0.2-1.0); Total Protein 6.7 g/dL (5.7-8.2)
[2023-01-14] MEDS: InsuLIN REG 1unit/0.01ml Soln (100units/ml) SC SCH ×2 (06:54→12:16)
[2023-01-14 07:03] LABS: Basophils # (auto) 0 10 ^3/uL (0-0.2); Eosinophils # (auto) 0 10 ^3/uL (0-0.8); Hematocrit 44.7 % (41.0-53.0); Lymphocytes # (auto) 0.7 10 ^3/uL (0.4-5.4); Neutrophils # (auto) 8.7 10 ^3/uL (1.6-8.6); White Blood Cell 9.8 10^3/uL (4.4-10.8)
[2023-01-14 07:05] LABS: Basophils % (auto) 0.1 % (0.0-2.0); Hemoglobin 14.6 g/dL (13.5-17.5); Lymphocytes % (auto) 7.1 % (10.0-50.0); Mean Corpuscular Hemoglobin 26.1 pg (28.0-32.0); Mean Corpuscular Hgb Conc. 32.7 g/dL (32.0-36.0); Mean Corpuscular Volume 79.8 fL (80.0-100.0); Monocytes # (auto) 0.4 10 ^3/uL (0-1.3); Monocytes % (auto) 4.4 % (0.0-12.0); Neutrophils % (auto) 88.4 % (37.0-80.0); Nucleated Red Blood Cells % 0.1 %; Red Cell Distribution Width 14.2 % (11.8-14.3)
[2023-01-14] MEDS: IPRATROPIUM BROM 0.5 MG/2.5ML INH SOL NEB SCH ×3 (07:08→14:11)
[2023-01-14] MEDS ORDERED: PRED20TA2 PO (10:29)
[2023-01-14] MEDS ORDERED: AZIT-74 PO (10:29)
[2023-01-14] MEDS: PANTOPRAZOLE 40 MG TAB PO SCH (10:36)
[2023-01-14] MEDS: methylPREDNISolone SOD SUCC 40 MG/ML VL IV SCH (10:36)
[2023-01-14] MEDS: AZITHROMYCIN 500MG/ 250ML 250 ML IV SCH (10:36)
[2023-01-14] MEDS: ACCU-CHEK COMFORT CURVE STRIP VI SCH ×2 (12:15→12:37)
== END 2023-01-14 16:00 | disposition home or self-care (01) | DRG 141 ==
LOC: EDBD 08:01 → ER 08:01 → OVERFLOW 12:56 → TELE-CENTR 19:44 → CENTRAL 01-13 11:08 → UNDODISIN 01-14 15:00
PROVIDERS: ADMIT Internal Medicine
DX: J45.902 Unspecified asthma with status asthmaticus (principal); J96.01 Acute respiratory failure with hypoxia; E44.0 Moderate protein-calorie malnutrition; J44.1 Chronic obstructive pulmonary disease with (acute) exacerbation; E83.51 Hypocalcemia; E66.01 Morbid (severe) obesity due to excess calories; I50.32 Chronic diastolic (congestive) heart failure; Z20.822 Contact with and (suspected) exposure to COVID-19; E11.9 Type 2 diabetes mellitus without complications; Z68.41 Body mass index [BMI] 40.0-44.9, adult; Z80.0 Family history of malignant neoplasm of digestive organs; Z80.3 Family history of malignant neoplasm of breast; Z82.3 Family history of stroke; Z82.41 Family history of sudden cardiac death; Z82.49 Family history of ischemic heart disease and other diseases of the circulatory system; Z86.718 Personal history of other venous thrombosis and embolism; Z83.3 Family history of diabetes mellitus; Z91.041 Radiographic dye allergy status
CPT/HCPCS: 36415; 71045; 76536; 80053; 80061; 82962; 83036; 83880; 84443; 84484; 85025; 85379; 86803; 87340; 87426; 93005; 93306; 93970; 94640; 94644; 96365; 96375; G0378; J1815; J7060

== ENCOUNTER 2023-03-14 10:12 | Inpatient (IN) | payer OTHER ==
[~2023-03-14] VITALS: Ht 162.6 cm; Wt 115.8 kg
[~2023-03-14 10:12] MED LIST changes: +AZIT-74 PO; -METH4PAK PO
[2023-03-14] MEDS ORDERED: ALBUTEROL SULF 2.5 MG/0.5ML(0.5%) NEB SOLN HHN ONE (10:45)
[2023-03-14] MEDS ORDERED: IPRATROPIUM BROM 0.5 MG/2.5ML INH SOL HHN ONE (10:45)
[2023-03-14] MEDS ORDERED: methylPREDNISolone SOD SUCC 125 MG/2 ML VL IV ONE (10:45)
[2023-03-14] MEDS ORDERED: AZITHROMYCIN 500MG/ 250ML 250 ML IV ONE (10:45)
[2023-03-14] MEDS ORDERED: ALBUTEROL SULF 2.5 MG/0.5ML(0.5%) NEB SOLN ONE (10:58)
[2023-03-14] MEDS ORDERED: IPRATROPIUM BROM 0.5 MG/2.5ML INH SOL ONE (10:58)
[2023-03-14 11:19] VITALS: PULSE 130; RESP 29; O2SAT 93; O2SAT 98
[2023-03-14] MEDS ORDERED: ACETAMINOPHEN 325 MG TAB PO ONE (11:30)
[2023-03-14] MEDS ORDERED: ACETAMINOPHEN 500 MG TAB PO ONE (11:45)
[2023-03-14 11:50] LABS: Basophils # (auto) 0.1 10 ^3/uL (0-0.2); Eosinophils # (auto) 0.2 10 ^3/uL (0-0.8); Lymphocytes # (auto) 1.1 10 ^3/uL (0.4-5.4); Monocytes # (auto) 0.8 10 ^3/uL (0-1.3); Neutrophils # (auto) 9.4 10 ^3/uL (1.6-8.6); White Blood Cell 11.6 10^3/uL (4.4-10.8)
[2023-03-14 11:54] LABS: Basophils % (auto) 0.4 % (0.0-2.0); Eosinophils % (auto) 1.7 % (0.0-7.0); Hematocrit 46.1 % (41.0-53.0); Lymphocytes % (auto) 9.9 % (10.0-50.0); Mean Corpuscular Hgb Conc. 32.5 g/dL (32.0-36.0); Monocytes % (auto) 6.8 % (0.0-12.0); Neutrophils % (auto) 81.2 % (37.0-80.0); Nucleated Red Blood Cells % 0.1 %; Red Blood Cells 5.76 10^6/uL (4.5-5.90); Red Cell Distribution Width 15.2 % (11.8-14.3)
[2023-03-14 12:05] LABS: Alanine Aminotransferase 23 U/L (7-40); Alkaline Phosphatase 90 U/L (46-116); Anion Gap 9 (5-15); Aspartate Aminotransferase 24 U/L (13-40); BUN/Creatinine Ratio 12.2 (10.0-20.0); Blood Urea Nitrogen 12 mg/dL (9-23); Calcium 8.7 mg/dL (8.7-10.4); Carbon Dioxide 24 mmol/L (20-30); Chloride 107 mmol/L (98-107); Glucose 103 mg/dL (74-106); Magnesium 2.1 mg/dL (1.6-2.6); Potassium 4.5 mmol/L (3.5-5.1); Sodium 140 mmol/L (136-145)
[2023-03-14 12:06] LABS: Albumin 4.2 g/dL (3.2-4.8); Bilirubin, Total 0.8 mg/dL (0.2-1.0); Total Protein 6.4 g/dL (5.7-8.2)
[2023-03-14] MEDS ORDERED: ACETAMINOPHEN 325 MG TAB PO PRN (12:15)
[2023-03-14] MEDS ORDERED: NITROGLYCERIN 0.4 MG SL TAB SL PRN (12:15)
[2023-03-14] MEDS ORDERED: MORPHINE SULFATE INJ 2 MG/ml SYRG IV PRN (12:15)
[2023-03-14] MEDS ORDERED: guaiFENesin-DM 100/10mg/5ml SYR PO PRN (12:15)
[2023-03-14] MEDS ORDERED: cefTRIAXone 1GM/50ML D5W 50 ML IV ONE (12:15)
[2023-03-14 12:16] LABS: COVID19 ANTIGEN SOFIA FIA NEGATIVE (NEGATIVE); Rapid Influenza A Negative (Negative); Rapid Influenza B Negative (Negative)
[2023-03-14 13:18] LABS: CRP High Sensitivity 7.16 mg/dL (<1.0)
[2023-03-14 13:55] LABS: Urine Epithelial Cast None Seen /hpf (<5)
[2023-03-14 14:10] LABS: Urine Bacteria NONE SEEN /hpf (None Seen); Urine Blood Negative /uL (Negative); Urine Clarity Clear (Clear); Urine Color Yellow (Yellow); Urine Mucus FEW (None Seen); Urine Protein, UAD TRACE (Negative); Urine Specific Gravity 1.023 (1.001-1.035); Urine WBC 2 /hpf (0 - 3); Urine pH 6.5 (5.0-8.0)
[2023-03-14 15:05] LABS: Amphetamine Screen, Urine Neg (NEGATIVE); Barbiturate Scree,Urine Neg (NEGATIVE); Benzodiazephine Screen, Urine Neg (NEGATIVE); Cannabinoid Screen, Urine Neg (NEGATIVE); Cocaine Screen, Urine Neg (NEGATIVE); Opiate Scree,Urine Neg (NEGATIVE); Phencyclidine Screen, Urine Neg (NEGATIVE)
[2023-03-14 19:30] VITALS: PULSE 89; RESP 20; O2SAT 96
[2023-03-14 19:33] VITALS: PULSE 93; RESP 18; O2SAT 92; O2SAT 93
[2023-03-14] MEDS: IPRATROPIUM BROM 0.5 MG/2.5ML INH SOL NEB SCH (19:33)
[2023-03-14 19:39] VITALS: PULSE 93; RESP 18; O2SAT 98
[2023-03-14] MEDS ORDERED: ENOXAPARIN SOD 100 MG/1 ML SYRINGE SC SCH (22:00)
[2023-03-14] MEDS ORDERED: ENOXAPARIN SOD 120 MG/0.8 ML SYRINGE SC SCH (22:00)
[2023-03-14] MEDS: GABAPENTIN 100 MG CAP PO SCH (22:24)
[2023-03-14] MEDS: methylPREDNISolone SOD SUCC 40 MG/ML VL IV SCH (22:24)
[2023-03-14 23:30] VITALS: BP 110/60; PULSE 93; RESP 18; TEMP 98.2; O2SAT 98
[2023-03-15] VITALS (9 sets, daily range): BP systolic 100; BP diastolic 52; PULSE 65–88; RESP 15–20; TEMP 36.8; O2SAT 92–96
[2023-03-15 05:33] LABS: Eosinophils # (auto) 0 10 ^3/uL (0-0.8); Hemoglobin 14.2 g/dL (13.5-17.5)
[2023-03-15 05:35] LABS: Basophils # (auto) 0 10 ^3/uL (0-0.2); Basophils % (auto) 0.1 % (0.0-2.0); Lymphocytes # (auto) 0.6 10 ^3/uL (0.4-5.4); Lymphocytes % (auto) 6.1 % (10.0-50.0); Mean Corpuscular Hemoglobin 26.1 pg (28.0-32.0); Monocytes # (auto) 0.4 10 ^3/uL (0-1.3); Monocytes % (auto) 3.6 % (0.0-12.0); Neutrophils # (auto) 9.3 10 ^3/uL (1.6-8.6); Neutrophils % (auto) 90.2 % (37.0-80.0); Red Blood Cells 5.45 10^6/uL (4.5-5.90); Red Cell Distribution Width 15.1 % (11.8-14.3); White Blood Cell 10.3 10^3/uL (4.4-10.8)
[2023-03-15 06:13] LABS: Alanine Aminotransferase 19 U/L (7-40); Alkaline Phosphatase 85 U/L (46-116); Anion Gap 9 (5-15); BUN/Creatinine Ratio 15.2 (10.0-20.0); Blood Urea Nitrogen 17 mg/dL (9-23); Carbon Dioxide 24 mmol/L (20-30); Chloride 105 mmol/L (98-107); Potassium 4.5 mmol/L (3.5-5.1); Sodium 138 mmol/L (136-145)
[2023-03-15 06:14] LABS: Albumin 4.2 g/dL (3.2-4.8); Aspartate Aminotransferase 13 U/L (13-40); Bilirubin, Total 0.5 mg/dL (0.2-1.0); Total Protein 6.8 g/dL (5.7-8.2)
[2023-03-15 06:31] LABS: Glucose 279 mg/dL (74-106)
[2023-03-15] MEDS: IPRATROPIUM BROM 0.5 MG/2.5ML INH SOL NEB SCH ×3 (06:51→18:20)
[2023-03-15] MEDS: cefTRIAXone 1GM/50ML D5W 50 ML IV SCH (09:55)
[2023-03-15] MEDS ORDERED: ENOXAPARIN SOD 40 MG/0.4 ML SYRINGE SC SCH (10:00)
[2023-03-15] MEDS: GABAPENTIN 100 MG CAP PO SCH ×2 (10:26→21:44)
[2023-03-15] MEDS: PANTOPRAZOLE 40 MG TAB PO SCH (10:26)
[2023-03-15] MEDS: methylPREDNISolone SOD SUCC 40 MG/ML VL IV SCH ×2 (10:27→21:45)
[2023-03-15] MEDS: ENOXAPARIN SOD 40 MG/0.4 ML SYRINGE SC SCH (10:27)
[2023-03-15] MEDS: CHOLECALCIFEROL (VITD3) 1,000UNIT=25mCg TAB PO SCH (10:27)
[2023-03-15] MEDS: AZITHROMYCIN 500MG/ 250ML 250 ML IV SCH (10:58)
[2023-03-15] MEDS ORDERED: DEXTROSE (50%) 50ML SYRG IV PRN (13:00)
[2023-03-15] MEDS: ACCU-CHEK COMFORT CURVE STRIP VI SCH ×2 (17:44→21:45)
[2023-03-15] MEDS: InsuLIN REG 1unit/0.01ml Soln (100units/ml) SC SCH ×2 (17:48→21:34)
[2023-03-15] MEDS: HYDROcodone-ACET 5/325MG TAB PO PRN (21:44)
[2023-03-15] MEDS ORDERED: CHOL20TA PO (23:06)
[2023-03-15] MEDS ORDERED: HYDR50TA69 PO (23:06)
[2023-03-15] MEDS ORDERED: DICL1GEL73 TD (23:06)
[2023-03-16] VITALS (14 sets, daily range): BP systolic 103–126; BP diastolic 58–78; PULSE 58–81; RESP 18–20; TEMP 97.4–98.4; O2SAT 6–98
[2023-03-16 05:25] LABS: Basophils # (auto) 0 10 ^3/uL (0-0.2); Basophils % (auto) 0.1 % (0.0-2.0); Eosinophils # (auto) 0 10 ^3/uL (0-0.8); Hemoglobin 13.9 g/dL (13.5-17.5); Mean Corpuscular Hemoglobin 26.1 pg (28.0-32.0); Mean Corpuscular Volume 80.1 fL (80.0-100.0); Monocytes # (auto) 0.6 10 ^3/uL (0-1.3); Red Blood Cells 5.33 10^6/uL (4.5-5.90)
[2023-03-16 05:27] LABS: Hematocrit 42.7 % (41.0-53.0); Mean Corpuscular Hgb Conc. 32.6 g/dL (32.0-36.0); Monocytes % (auto) 4.3 % (0.0-12.0); Neutrophils # (auto) 12.2 10 ^3/uL (1.6-8.6); Neutrophils % (auto) 88.6 % (37.0-80.0); Nucleated Red Blood Cells % 0.1 %; Red Cell Distribution Width 15.2 % (11.8-14.3); White Blood Cell 13.8 10^3/uL (4.4-10.8)
[2023-03-16 05:38] LABS: Alanine Aminotransferase 14 U/L (7-40); Albumin 4.2 g/dL (3.2-4.8); Alkaline Phosphatase 83 U/L (46-116); Anion Gap 5 (5-15); Aspartate Aminotransferase 12 U/L (13-40); BUN/Creatinine Ratio 21.1 (10.0-20.0); Blood Urea Nitrogen 24 mg/dL (9-23); Calcium 9.3 mg/dL (8.5-10.1); Carbon Dioxide 27 mmol/L (20-30); Chloride 105 mmol/L (98-107); Glucose 284 mg/dL (74-106); Potassium 4.7 mmol/L (3.5-5.1); Sodium 137 mmol/L (136-145)
[2023-03-16 05:39] LABS: Bilirubin, Total 0.3 mg/dL (0.2-1.0); Total Protein 6.6 g/dL (5.7-8.2)
[2023-03-16] MEDS: InsuLIN REG 1unit/0.01ml Soln (100units/ml) SC SCH ×4 (06:06→22:00)
[2023-03-16] MEDS: IPRATROPIUM BROM 0.5 MG/2.5ML INH SOL NEB SCH ×3 (06:48→19:11)
[2023-03-16 06:57] LABS: CRP High Sensitivity 3.66 mg/dL (<1.0)
[2023-03-16] MEDS: ACCU-CHEK COMFORT CURVE STRIP VI SCH ×4 (06:58→22:00)
[2023-03-16] MEDS: ENOXAPARIN SOD 40 MG/0.4 ML SYRINGE SC SCH (09:26)
[2023-03-16] MEDS: cefTRIAXone 1GM/50ML D5W 50 ML IV SCH (09:26)
[2023-03-16] MEDS: PANTOPRAZOLE 40 MG TAB PO SCH (09:27)
[2023-03-16] MEDS: GABAPENTIN 100 MG CAP PO SCH ×2 (09:27→22:34)
[2023-03-16] MEDS: methylPREDNISolone SOD SUCC 40 MG/ML VL IV SCH ×2 (09:27→22:35)
[2023-03-16] MEDS: CHOLECALCIFEROL (VITD3) 1,000UNIT=25mCg TAB PO SCH (09:30)
[2023-03-16] MEDS ORDERED: GADOTERATE MEG 7.5 MMOL/15ml INJ (0.5MMOL/ml) IV ONE (10:34)
[2023-03-16] MEDS: AZITHROMYCIN 500MG/ 250ML 250 ML IV SCH (17:53)
[2023-03-16] MEDS: INSULIN LANTUS (GLARGINE) 1 /0.01ml (100units/ml) SC SCH (18:29)
[2023-03-17] VITALS (9 sets, daily range): BP systolic 98–114; BP diastolic 52–65; PULSE 40–66; RESP 18–20; TEMP 97.4–97.7; O2SAT 93–100
[2023-03-17 06:26] LABS: Basophils # (auto) 0 10 ^3/uL (0-0.2); Basophils % (auto) 0.1 % (0.0-2.0); Eosinophils # (auto) 0 10 ^3/uL (0-0.8); Hematocrit 42.1 % (41.0-53.0); Hemoglobin 13.6 g/dL (13.5-17.5); Lymphocytes # (auto) 1.1 10 ^3/uL (0.4-5.4); Mean Corpuscular Hgb Conc. 32.4 g/dL (32.0-36.0); Monocytes # (auto) 0.6 10 ^3/uL (0-1.3); Monocytes % (auto) 6.3 % (0.0-12.0)
[2023-03-17 06:31] LABS: Lymphocytes % (auto) 11.5 % (10.0-50.0); Mean Corpuscular Hemoglobin 25.8 pg (28.0-32.0); Mean Corpuscular Volume 79.6 fL (80.0-100.0); Neutrophils % (auto) 82.1 % (37.0-80.0); Nucleated Red Blood Cells % 0.2 %; Red Blood Cells 5.29 10^6/uL (4.5-5.90); Red Cell Distribution Width 15.1 % (11.8-14.3); White Blood Cell 9.8 10^3/uL (4.4-10.8)
[2023-03-17] MEDS: INSULIN LANTUS (GLARGINE) 1 /0.01ml (100units/ml) SC SCH (06:31)
[2023-03-17] MEDS: ACCU-CHEK COMFORT CURVE STRIP VI SCH ×2 (06:32→11:47)
[2023-03-17] MEDS: InsuLIN REG 1unit/0.01ml Soln (100units/ml) SC SCH ×2 (06:32→11:58)
[2023-03-17 06:47] LABS: Alanine Aminotransferase 13 U/L (7-40); Alkaline Phosphatase 78 U/L (46-116); Anion Gap 6 (5-15); BUN/Creatinine Ratio 17.8 (10.0-20.0); Blood Urea Nitrogen 19 mg/dL (9-23); Calcium 9.1 mg/dL (8.5-10.1); Carbon Dioxide 29 mmol/L (20-30); Chloride 103 mmol/L (98-107); Glucose 215 mg/dL (74-106); Potassium 4.3 mmol/L (3.5-5.1); Sodium 138 mmol/L (136-145)
[2023-03-17 06:49] LABS: Aspartate Aminotransferase 13 U/L (13-40); Bilirubin, Total 0.4 mg/dL (0.2-1.0); Total Protein 6.4 g/dL (5.7-8.2)
[2023-03-17 06:57] LABS: CRP High Sensitivity 1.49 mg/dL (<1.0)
[2023-03-17 07:07] LABS: Magnesium 2.1 mg/dL (1.6-2.6)
[2023-03-17] MEDS: IPRATROPIUM BROM 0.5 MG/2.5ML INH SOL NEB SCH ×2 (07:11→12:08)
[2023-03-17] MEDS: CHOLECALCIFEROL (VITD3) 1,000UNIT=25mCg TAB PO SCH (09:11)
[2023-03-17] MEDS: cefTRIAXone 1GM/50ML D5W 50 ML IV SCH (09:11)
[2023-03-17] MEDS: methylPREDNISolone SOD SUCC 40 MG/ML VL IV SCH (09:11)
[2023-03-17] MEDS: ENOXAPARIN SOD 40 MG/0.4 ML SYRINGE SC SCH (09:11)
[2023-03-17] MEDS: GABAPENTIN 100 MG CAP PO SCH (09:12)
[2023-03-17] MEDS: PANTOPRAZOLE 40 MG TAB PO SCH (09:23)
[2023-03-17] MEDS: HYDROcodone-ACET 5/325MG TAB PO PRN (09:23)
[2023-03-17] MEDS ORDERED: AZIT-74 PO (11:13)
[2023-03-17] MEDS ORDERED: METH4PAK PO (11:13)
[2023-03-17] MEDS ORDERED: AZITHROMYCIN 250 MG TAB PO ONE (16:00)
[2023-03-17] MEDS ORDERED: AZITHROMYCIN 500MG/ 250ML 250 ML IV SCH (16:00)
[2023-03-18] MEDS ORDERED: AZITHROMYCIN 250 MG TAB PO SCH (10:00)
== END 2023-03-17 15:52 | disposition home or self-care (01) | DRG 140 ==
LOC: EDBD 10:12 → ER 10:12 → TELE 12:16 → TELE-WESTW 03-15 18:34
PROVIDERS: ADMIT Internal Medicine; ATTEND Emergency Medicine
DX: J44.1 Chronic obstructive pulmonary disease with (acute) exacerbation (principal); J96.01 Acute respiratory failure with hypoxia; E11.40 Type 2 diabetes mellitus with diabetic neuropathy, unspecified; I50.9 Heart failure, unspecified; I11.0 Hypertensive heart disease with heart failure; E66.01 Morbid (severe) obesity due to excess calories; Z20.822 Contact with and (suspected) exposure to COVID-19; G47.33 Obstructive sleep apnea (adult) (pediatric); Z68.41 Body mass index [BMI] 40.0-44.9, adult; Z88.2 Allergy status to sulfonamides; Z91.041 Radiographic dye allergy status; Z79.899 Other long term (current) drug therapy; Z87.891 Personal history of nicotine dependence; Z79.84 Long term (current) use of oral hypoglycemic drugs; Z79.51 Long term (current) use of inhaled steroids; Z83.3 Family history of diabetes mellitus; Z82.49 Family history of ischemic heart disease and other diseases of the circulatory system; Z82.3 Family history of stroke; Z82.41 Family history of sudden cardiac death; Z80.0 Family history of malignant neoplasm of digestive organs; Z80.3 Family history of malignant neoplasm of breast
CPT/HCPCS: 36415; 70490; 71045; 71250; 72147; 78582; 80053; 80061; 80307; 81001; 82306; 82607; 82962; 83036; 83605; 83690; 83735; 84443; 84484; 85025; 85379; 86141; 87040; 87086; 87426; 87804; 93005; 94640; 94644; 96365; 96375; 99291; G0378; J1815

== ENCOUNTER 2023-06-26 18:58 | Emergency (ER) | payer OTHER ==
[~2023-06-26] VITALS: Ht 162.6 cm; Wt 115.9 kg
[~2023-06-26 18:58] MED LIST changes: +CEPH500C PO; +CHOL20TA PO; -CHOL400T19 PO; -CHOL500033; +DICL1GEL73 TD; +HYDR50TA69 PO; +METH4PAK PO; -PRED20TA2 PO
[2023-06-26] MEDS ORDERED: MUPI2OIN2 EX (23:27)
[2023-06-27 02:43] VITALS: BP 130/84; PULSE 89; RESP 20; TEMP 98.6
[2023-06-27 02:44] VITALS: O2SAT 98
== END 2023-06-27 02:49 | disposition home or self-care (01) ==
LOC: ER 18:58
DX: S91.312D Laceration without foreign body, left foot, subsequent encounter (principal); J44.9 Chronic obstructive pulmonary disease, unspecified; E11.9 Type 2 diabetes mellitus without complications; Z88.2 Allergy status to sulfonamides; Z87.891 Personal history of nicotine dependence; X58.XXXD Exposure to other specified factors, subsequent encounter

== ENCOUNTER 2024-01-07 14:51 | Inpatient (IN) | payer OTHER ==
[~2024-01-07] VITALS: Ht 162.6 cm; Wt 101.2 kg
[~2024-01-07 14:51] MED LIST changes: +MUPI2OIN2 EX
--- NOTE | 2024-01-07 15:09 | ED.PDOC ---
SOB-HPI HPI Comments 38 year old male GRACE presents to the ED with chief complaint of SOB. Patient reports that he has been experiencing SOB due to his COPD and asthma. Patient relays that he also has associated symptoms of fever, cough, and nasal congestion. Patient states, but this still don't have mutis taste. Time Seen by MD: 15:05 Primary Care Provider: PACO Winter notes: Nurses Notes, Director Channel Notes, Medications, Allergies Information Source: Patient, Emergency Med Personnel Mode of Arrival: EMS Severity: Moderate Timing: Days Duration: Since onset Context: At Rest PE Risk Factors: None History of: Asthma, COPD Prehospital treatment: Beta-Agonist Tx Modifying Factors: Nothing Associated Signs and Symptoms: Fever, Cough, Chest Pain If cough with SOB: Productive Past Medical History PAST MEDICAL HISTORY: Asthma, CHF, COPD, DM Surgical History: Denies all surgeries Family History Family History: Reviewed,noncontributory to illness Social History Smoker: Quit Greater Than 1 Year, Cigarettes Alcohol: Sober Drugs: Denies Drug Use Lives In: Home Constitutional: reports: fever; denies: chills, diaphoresis, fatigue, malaise, sweats, weakness, others EENTM: denies: blurred vision, double vision, ear bleeding, ear discharge, ear drainage, ear pain, ear ringing, eye pain, eye redness, hearing loss, mouth pain, mouth swelling, nasal discharge, nose bleeding, nose congestion, nose pain, photophobia, tearing, throat pain, throat swelling, voice changes, others Respiratory: reports: cough, shortness of breath, SOB with excertion; denies: hemoptysis, orthopnea, SOB at rest, stridor, wheezing, others Cardiovascular: denies: chest pain, dizzy spells, diaphoresis, Dyspnea on exertion, edema, irregular heart beat, left arm pain, lightheadedness, palpitations, PND, syncope, others Gastrointestinal: denies: abdomen distended, abdominal pain, blood streaked bowels, constipated, diarrhea, dysphagia, difficulty swallowing, hematemesis, melena, nausea, poor appetite, poor fluid intake, rectal bleeding, rectal pain, vomiting, others Genitourinary: denies: burning, dysuria, flank pain, frequency, hematuria, incontinence, penile discharge, penile sore, pain, testicle pain, testicle swelling, urgency, others Neurological: denies: dizziness, fainting, headache, left sided numbness, left sided weakness, numbness, paresthesia, pre-existing deficit, right sided numbness, right sided weakness, seizure, speech problems, tingling, tremors, weakness, others Musculoskeletal: denies: back pain, gout, joint pain, joint swelling, muscle pain, muscle stiffness, neck pain, others Integumetry: denies: bruises, change in color, change in hair/nails, dryness, laceration, lesions, lumps, rash, wounds, others Allergic/Immunocompromised: denies: Difficulty Healing, Frequent Infections, Hives, Itching, others Hematologic/Lymphatic: denies: anemia, blood clots, easy bleeding, easy bruising, swollen glands, others Endocrine: denies: excessive hunger, excessive sweating, excessive thirst, excessive urination, flushing, intolerance to cold, intolerance to heat, unexplained weight gain, unexplained weight loss, others Psychiatric: denies: anxiety, bipolar disorder, depression, hopeless, panic disorder, schizophrenia, sleepless, suicidal, others Unable to Obtain due to: Altered Mental Status All Other Systems: Reviewed and Negative Physical Exam General Appearance: Moderate Distress, Normal HEENT: Normal ENT Inspection, PERRL/EOMI Neck: Full Range of Motion, Non-Tender, Normal, Normal Inspection Respiratory: Accessory Muscle Use, Chest Non-Tender, Other (Coarse breath sounds) Cardiovascular: No Edema, No JVD, No Murmur, No Gallop, Normal Peripheral Pulses, Regular Rate/Rhythm Breast Exam: Deferred Gastrointestinal: No Organomegaly, Non Tender, No Pulsatile Mass, Normal Bowel Sounds, Soft Genitalia: Deferred Pelvic: Deferred Rectal: Deferred Extremities: No calf tenderness, Normal capillary refill, Normal inspection, Normal range of motion, Non-tender, No pedal edema Musculoskeletal : Apperance: Normal Neurologic: Alert, crown blocker II-XII nml as Tested, No Motor Deficits, Normal Affect, Normal Mood, No Sensory Deficits Cerebellar Function: NOT DONE Reflexes: NOT DONE Skin: Dry, Normal Color, Warm Peripheral Pulses: 3+ Radial (R), 3+ Radial (L) Lymphatic: No Adenopathy Was a procedure done? Was a procedure done?: No Differential Dx Differential Diagnosis: Anxiety, Asthma, Bronchitis, CHF, COPD X-Ray, Labs, Meds, VS Patient alert. Complaining of shortness a breath. History of asthma COPD diabetes. Vitals stable. Possible pneumonitis. Possible pneumonia. Reviewed his previous visit. Explained to the patient. Continue cardiac monitoring. Was given Solu-Medrol. Was given breathing treatment. Was given azithromycin. Time of 1ST Reevaluation: 16:05 Reevaluation 1ST: Unchanged Patient Education/Counseling: Diagnosis, Treatment Family Education/Counseling: No Family Present Departure 1 Departure Time of Disposition: 15:25 Impression: Primary Impression: Pneumonitis Additional Impression: CHF exacerbation Qualified Codes: I50.43 - Acute on chronic combined systolic (congestive) and diastolic (congestive) heart failure Disposition: ADMITTED INPATIENT Admit to: Med Surg Condition: Guarded Critical Care Note Critical Care Time?: Yes (45 min-critical care time only) Stability Stability form required: No Heart Score Heart Score: Heart Score Response (Comments) Value History N/A 0 EKG N/A 0 Age N/A 0 Risk Factors N/A 0 Troponin N/A 0 Total 0 I personally scribed for MARINA VÁZQUEZ MD ([email or web address]) on 01/07/24 at 15:09. Electronically submitted by Hector Kessler ([email or web address]). MARINA VÁZQUEZ MD Jan 07, 2024 15:09
--- NOTE | 2024-01-07 15:32 | DVH ---
CHEST RADIOGRAPH Indication:sob Technique: Single frontal view of the chest was obtained Comparison: XY CHEST PORTABLE on DOS: 03/17/23, XY CHEST PORTABLE on DOS: 03/14/23, XY CHEST PORTABLE o n DOS: 01/12/23 FINDINGS: Lines and Tubes: None Lungs: No focal consolidation. Pleura: No effusion. No pneumothorax. Cardiomediastinal contours: Unremarkable Bones: No acute osseous abnormality. IMPRESSION: 1. No significant change from 03/17/2023.
[2024-01-07 16:10] LABS: Basophils # (auto) 0 10 ^3/uL (0-0.2); Basophils % (auto) 0.7 % (0.0-2.0); Eosinophils # (auto) 0 10 ^3/uL (0-0.8); Eosinophils % (auto) 0.1 % (0.0-7.0); Hemoglobin 16.6 g/dL (13.5-17.5); Lymphocytes # (auto) 0.8 10 ^3/uL (0.4-5.4); Lymphocytes % (auto) 12.9 % (10.0-50.0); Mean Corpuscular Hemoglobin 27.9 pg (28.0-32.0); Mean Corpuscular Hgb Conc. 33.8 g/dL (32.0-36.0); Mean Corpuscular Volume 82.7 fL (80.0-100.0); Monocytes # (auto) 0.5 10 ^3/uL (0-1.3); Monocytes % (auto) 8.8 % (0.0-12.0); Neutrophils # (auto) 4.7 10 ^3/uL (1.6-8.6); Neutrophils % (auto) 77.5 % (37.0-80.0); Nucleated Red Blood Cells % 0.1 %; Platelet Count (auto) 234 10^3/uL (140-450); Red Blood Cells 5.93 10^6/uL (4.5-5.90); Red Cell Distribution Width 13.7 % (11.8-14.3); White Blood Cell 6.1 10^3/uL (4.4-10.8)
[2024-01-07 16:20] LABS: Chloride 104 mmol/L (98-107); Sodium 139 mmol/L (136-145)
[2024-01-07 16:21] LABS: Anion Gap 6 (5-15); Calcium 9.7 mg/dL (8.7-10.4); Carbon Dioxide 29 mmol/L (20-31)
[2024-01-07 16:26] LABS: BUN/Creatinine Ratio 7.2 (10.0-20.0); Blood Urea Nitrogen 8 mg/dL (9-23); Glucose 91 mg/dL (74-106)
[2024-01-07 18:30] VITALS: PULSE 110; RESP 22; O2SAT 92
[2024-01-07] MEDS: levoFLOXacin 500MG 100 ML IV ONE (18:45)
[2024-01-07 19:30] VITALS: PULSE 127; RESP 20; O2SAT 91
[2024-01-07 19:39] LABS: Rapid Influenza B Negative (Negative)
[2024-01-07 19:43] LABS: Rapid Influenza A Positive (Negative)
[2024-01-07] MEDS: methylPREDNISolone SOD SUCC 125 MG/2 ML VL IM ONE (19:45)
[2024-01-07] MEDS ORDERED: IPRATROPIUM BROM 0.5 MG/2.5ML INH SOL NEB PRN (19:45)
[2024-01-07] MEDS ORDERED: ALBUTEROL SULF 2.5 MG/0.5ML(0.5%) NEB SOLN NEB PRN (19:45)
[2024-01-07 19:49] LABS: COVID19 ANTIGEN SOFIA FIA NEGATIVE (NEGATIVE)
[2024-01-07] MEDS: ACETAMINOPHEN 325 MG TAB PO ONE (19:57)
[2024-01-07] MEDS: AZITHROMYCIN 500MG/ 250ML 250 ML IV ONE (19:58)
--- NOTE | 2024-01-07 20:11 | DVHHP2 ---
History of Present Illness Reason for Visit: shortness of breath History of Present Illness 38 yo morbidly obese patient with COPD, CHF, DM, Asthma Cardiovascular: CHF Pulmonary: COPD Endocrine: Diabetes Review of Systems Constitutional: No: Fever, Chills, Sweats, Weakness, Malaise, Other Eyes: No: Pain, Vision change, Conjunctivae inflammation, Eyelid inflammation, Other, Redness ENT: No: Ear pain, Ear discharge, Nose pain, Nose discharge, Nose congestion, Mouth pain, Mouth swelling, Throat pain, Throat swelling, Other Respiratory: Shortness of breath, SOB with excertion; No: Cough, Dry, Wheezing, Hemoptysis, Pleuritic Pain, Sputum, Wheezing, Other Cardiovascular: No: Chest Pain, Palpitations, Orthopnea, Paroxysmal Noc. Dyspnea, Edema, Lt Headedness, Other Gastrointestinal: No: Nausea, Vomiting, Abdominal Pain, Diarrhea, Constipation, Melena, Hematochezia, Other Genitourinary: No Dysuria, No Frequency, No Incontinence, No Hematuria, No Retention, No Other Musculoskeletal: No: other, neck pain, shoulder pain, arm pain, back pain, hand pain, leg pain, foot pain Skin: No: Rash, Lesions, Jaundice, Bruising, Other Neurological: No: Weakness, Numbness, Incoordination, Change in speech, Confusion, Seizures, Other Allergies: Coded Allergies: Iodine (Verified Allergy, Unknown, 01/17/18) Sulfa Antibiotics (Verified Allergy, Unknown, 01/17/18) Medications Current Medications Medications Dose Ordered Sig/Neil Route Start Time Stop Time Status Last Admin Dose Admin Levofloxacin/ Dextrose 100 ml @ 100 mls/hr DAILY IV 01/08/24 10:00 UNV Azithromycin 250 ml @ 125 mls/hr DAILY IV 01/08/24 10:00 UNV Pantoprazole Sodium 40 mg DAILY PO 01/08/24 10:00 UNV Rivaroxaban 20 mg DAILY PO 01/08/24 10:00 UNV Patient Own Medication 50 mcg DAILY PO 01/08/24 10:00 UNV Patient Own Medication 1 % QID TD 01/07/24 22:00 UNV Patient Own Medication 1 pow BID XX 01/07/24 22:00 UNV Hydroxyzine Pamoate 50 mg QPM PO 01/08/24 18:00 UNV Albuterol 2.5 mg Q4HPRN PRN NEB 01/07/24 20:15 UNV Ipratropium [place] 0.5 mg Q4HPRN PRN NEB 01/07/24 20:15 UNV Exam Vital Signs Vital Signs Date Time Temp Pulse Resp B/P (MAP) Pulse Ox O2 Delivery O2 Flow Rate FiO2 01/07/24 19:57 102.8 01/07/24 18:30 110 22 117/56 (76) 94 01/07/24 18:30 Nasal Cannula* 2 28 General Appearance: Alert, Oriented X3 HEENT: Atraumatic, PERRLA Respiratory: Clear to auscultation, Normal air movement Cardiovascular: Regular rate, Normal S1 Abdominal: Normal bowel sounds, Soft Extremities: No clubbing, No cyanosis Skin: No rashes, No breakdown Neuro: Normal gait, Normal speech Psych/Mental Status: Mental status NL, Mood NL Labs/Xrays Labs Test 01/07/24 18:58 01/07/24 15:24 Range/Units Influenza Type A Antigen Positive Negative Influenza Type B Antigen Negative Negative SARS-CoV-2 Antigen (Rapid) Negative NEGATIVE White Blood Count 6.1 4.4-10.8 10^3/uL Red Blood Count 5.93 H 4.5-5.90 10^6/uL Hemoglobin 16.6 13.5-17.5 g/dL Hematocrit 49.0 41.0-53.0 % Mean Corpuscular Volume 82.7 80.0-100.0 fL Mean Corpuscular Hemoglobin 27.9 L 28.0-32.0 pg Mean Corpuscular Hemoglobin Concent 33.8 32.0-36.0 g/dL Red Cell Distribution Width 13.7 11.8-14.3 % Platelet Count 234 140-450 10^3/uL Mean Platelet Volume 7.8 6.9-10.8 fL Neutrophils (%) (Auto) 77.5 37.0-80.0 % Lymphocytes (%) (Auto) 12.9 10.0-50.0 % Monocytes (%) (Auto) 8.8 0.0-12.0 % Eosinophils (%) (Auto) 0.1 0.0-7.0 % Basophils (%) (Auto) 0.7 0.0-2.0 % Neutrophils # (Auto) 4.7 1.6-8.6 10 ^3/uL Lymphocytes # (Auto) 0.8 0.4-5.4 10 ^3/uL Monocytes # (Auto) 0.5 0-1.3 10 ^3/uL Eosinophils # (Auto) 0 0-0.8 10 ^3/uL Basophils # (Auto) 0 0-0.2 10 ^3/uL Nucleated Red Blood Cells 0.1 % Sodium Level 139 136-145 mmol/L Potassium Level 4.0 3.5-5.1 mmol/L Chloride Level 104 98-107 mmol/L Carbon Dioxide Level 29 20-31 mmol/L Anion Gap 6 5-15 Blood Urea Nitrogen 8 L 9-23 mg/dL Creatinine 1.11 0.700-1.30 mg/dL Glomerular Filtration Rate Calc 86 >90 mL/min BUN/Creatinine Ratio 7.2 L 10.0-20.0 Serum Glucose 91 74-106 mg/dL Calcium Level 9.7 8.7-10.4 mg/dL Assessment/Plan Assessment/Plan Admit to med/surge Acute on chronic copd exacerbation suspected pna duo abx treatment steroids ordered for now prn breathing treatments DM insulin sliding scale monitor sugars on steroids CHF monitor for fluid overload Plan discussed with: Patient My Orders Orders - BERNARDINO HUGHES MD Procedure Category Date Status Time B-Type Natriuretic LAB 01/07/24 In Process Peptide 19:40 Levofloxacin 500mg PHA 01/08/24 Logged (Levaquin 500mg/ 100m 10:00 Azithromycin 500mg/ PHA 01/08/24 Logged 250ml (Zithromax 50 10:00 Methylprednisolone PHA 01/07/24 Logged Sod Succ (Solu Medrol 19:45 Med Neb Initial RT 01/07/24 Logged Treatment 19:40 Pantoprazole Tablet PHA 01/08/24 Logged (Protonix Tablet) 10:00 Rivaroxaban Tablet PHA 01/08/24 Logged (Xarelto Tablet) 10:00 (Nf) Cholecalciferol PHA 01/08/24 Logged (Vitamin D3) 10:00 (Nf) Diclofenac PHA 01/07/24 Logged Sodium (Topical) 22:00 (Nf) Nystatin PHA 01/07/24 Logged 22:00 Hydroxyzine Oral PHA 01/08/24 Logged (Vistaril Oral) 18:00 Albuterol Medneb PHA 01/07/24 Logged (Ventolin Medneb) 20:15 Ipratropium Medneb PHA 01/07/24 Logged (Atrovent Medneb) 20:15 Admit ADMIT 01/07/24 Verified 20:02 Code Status CODE 01/07/24 Verified 20:02 Vital Signs [facility] 01/07/24 Verified 20:02 Review Orders With [facility] 01/07/24 Verified Adm. 20:02 Regular Diet DIET 01/08/24 Verified Breakfast Lorazepam Tablet [facility] 01/07/24 Verified (Ativan Tablet) 20:15 Alum & Mag PHA 01/07/24 Verified Hydrox-Simethicone 20:15 Docusate Sodium [facility] 01/07/24 Verified Capsule (Colace 20:15 Acetaminophen Tablet [facility] 01/07/24 Verified (Tylenol Tablet) 20:15 Temazepam (Restoril) [facility] 01/07/24 Verified 20:15 Notify Md Of Changes [facility] 01/07/24 Verified From Base 20:02 Advance Directive [facility] 01/07/24 Verified 20:02 Basic Metabolic Panel LAB 01/08/24 Verified 04:00 Complete Blood Count LAB 01/08/24 Verified 04:00 Patient Condition ORDERS 01/07/24 Verified 20:02 Allergies [facility] 01/07/24 Verified 20:02 Hydrocodone-Acet [facility] 01/07/24 Verified 5/325mg Tab ([place] 20:15 Ondansetron Hcl [facility] 01/07/24 Verified (Zofran) 20:15 Morphine 2mg Iv Q4hprn [facility] 01/07/24 Verified 20:15 Notify Md Of Changes [facility] 01/07/24 Verified From Base 20:02 Oxygen By Nasal RT 01/07/24 Verified Cannula 20:02 Problem List: (1) Respiratory distress (2) Pneumonia (3) Acute respiratory distress (4) COPD exacerbation (5) CHF exacerbation Date of Service: Jan 07, 2024 Billing Provider: BERNARDINO HUGHES MD Common Visit Codes: [id number] INP/OBS CARE (HIGH) BERNARDINO HUGHES MD Jan 07, 2024 20:11
[2024-01-07] MEDS ORDERED: ONDANSETRON HCL 4 MG/2 ML VIAL IV PRN (20:15)
[2024-01-07] MEDS ORDERED: MAALOX PLUS or MAALOX 30 ML PO PRN (20:15)
[2024-01-07] MEDS ORDERED: LORazepam 0.5 MG TAB PO PRN (20:15)
[2024-01-07] MEDS ORDERED: ACETAMINOPHEN 325 MG TAB PO PRN (20:15)
[2024-01-07] MEDS ORDERED: DOCUSATE SOD 100 MG CAP PO PRN (20:15)
[2024-01-07] MEDS: TEMAZEPAM 15 MG CAP PO PRN (21:30)
[2024-01-07 21:46] VITALS: BP 98/55; PULSE 102; RESP 24; TEMP 102; O2SAT 97
[2024-01-07 21:47] VITALS: PULSE 102; RESP 24; O2SAT 97
[2024-01-07] MEDS: IPRATROPIUM BROM 0.5 MG/2.5ML INH SOL NEB PRN (21:47)
[2024-01-07] MEDS: ALBUTEROL SULF 2.5 MG/0.5ML(0.5%) NEB SOLN NEB PRN (21:47)
[2024-01-07 21:57] VITALS: PULSE 85; RESP 22; O2SAT 92
[2024-01-07] MEDS: DICLOFENAC SODIUM 1% TD SCH (22:00)
[2024-01-07 22:15] VITALS: PULSE 90; RESP 18; O2SAT 92
[2024-01-08] MEDS: NYSTATIN TOPICAL POWDER 15GM TOP SCH (01:47)
[2024-01-08 05:59] LABS: Basophils # (auto) 0 10 ^3/uL (0-0.2); Basophils % (auto) 0.8 % (0.0-2.0); Eosinophils # (auto) 0 10 ^3/uL (0-0.8); Hematocrit 48.8 % (41.0-53.0); Hemoglobin 16.2 g/dL (13.5-17.5); Lymphocytes # (auto) 0.4 10 ^3/uL (0.4-5.4); Lymphocytes % (auto) 11.7 % (10.0-50.0); Mean Corpuscular Hemoglobin 27.4 pg (28.0-32.0); Mean Corpuscular Hgb Conc. 33.2 g/dL (32.0-36.0); Mean Corpuscular Volume 82.3 fL (80.0-100.0); Monocytes # (auto) 0.1 10 ^3/uL (0-1.3); Monocytes % (auto) 2.8 % (0.0-12.0); Neutrophils # (auto) 2.7 10 ^3/uL (1.6-8.6); Neutrophils % (auto) 84.7 % (37.0-80.0); Nucleated Red Blood Cells % 0.1 %; Platelet Count (auto) 220 10^3/uL (140-450); Red Blood Cells 5.93 10^6/uL (4.5-5.90); Red Cell Distribution Width 13.9 % (11.8-14.3); White Blood Cell 3.2 10^3/uL (4.4-10.8)
[2024-01-08 06:04] LABS: Anion Gap 11 (5-15); Carbon Dioxide 25 mmol/L (20-31); Chloride 104 mmol/L (98-107); Potassium 3.8 mmol/L (3.5-5.1); Sodium 140 mmol/L (136-145)
[2024-01-08 06:05] LABS: Calcium 9.5 mg/dL (8.7-10.4)
[2024-01-08 06:10] LABS: BUN/Creatinine Ratio 10.5 (10.0-20.0); Blood Urea Nitrogen 12 mg/dL (9-23)
[2024-01-08 06:16] LABS: Glucose 200 mg/dL (74-106)
[2024-01-08 07:27] VITALS: O2SAT 94
[2024-01-08 07:30] VITALS: PULSE 77; RESP 14; O2SAT 93
[2024-01-08 10:00] VITALS: O2SAT 94; O2SAT 95
[2024-01-08] MEDS: CHOLECALCIFEROL (VITD3) 1,000UNIT=25mCg TAB PO SCH (10:00)
[2024-01-08] MEDS: levoFLOXacin 500MG 100 ML IV SCH (10:14)
[2024-01-08] MEDS: RIVAROXABAN 20 MG TAB PO SCH (10:14)
[2024-01-08] MEDS: PANTOPRAZOLE 40 MG TAB PO SCH (10:14)
[2024-01-08] MEDS: AZITHROMYCIN 500MG/ 250ML 250 ML IV SCH (10:59)
--- NOTE | 2024-01-08 14:54 | DVHPN2 ---
Subjective Patient continues to report having shortness of breath Reviewed: Care Plan, H&P, Labs, Medications Changes from previous H/P or p: No Changes Eyes: No Pain, No Vision change, No Conjunctivae inflammation, No Eyelid inflammation, No Other, No Redness ENT: No Ear pain, No Ear discharge, No Nose pain, No Nose discharge, No Nose congestion, No Mouth pain, No Mouth swelling, No Throat pain, No Throat swelling, No Other Cardiovascular: No Chest Pain, No Palpitations, No Orthopnea, No Paroxysmal Noc. Dyspnea, No Edema, No Lt Headedness, No Other Respiratory: No Cough, No Dry; Shortness of breath, SOB with excertion; No Wheezing, No Hemoptysis, No Pleuritic Pain, No Sputum, No Other Gastrointestinal: No Nausea, No Vomiting, No Abdominal Pain, No Diarrhea, No Constipation, No Melena, No Hematochezia, No Other Genitourinary: No Dysuria, No Frequency, No Incontinence, No Hematuria, No Retention, No Other Musculoskeletal: No other, No neck pain, No shoulder pain, No arm pain, No back pain, No hand pain, No leg pain, No foot pain Skin: No Rash, No Lesions, No Jaundice, No Bruising, No Other Objective Vitals Vital Signs Date Time Temp Pulse Resp B/P (MAP) Pulse Ox O2 Delivery O2 Flow Rate FiO2 01/08/24 14:29 105 16 105/72 (83) 94 01/08/24 10:36 Simple Mask* 6 50 01/08/24 07:30 98.3 98.3 Intake/Output Intake and Output 01/08/24 07:00 Intake Total 250 ml Balance 250 ml Intake IV Total 250 ml General Appearance: Alert, Oriented X3, Cooperative, No acute distress, mild distress HEENT: Atraumatic, PERRLA Lungs: Other (Expiratory wheezing. Patient on simple mask at 6 liters/minutes) Cardiovascular: Normal S1, Normal S2 Abdomen: Normal bowel sounds, Soft, No tenderness Genitourinary: No Apparent Abnormalities Musculoskeletal: Normal sensory function, Normal motor function Psych/Mental Status: Mental status NL, Mood NL Medications Current Medications Medications Dose Ordered Sig/Neil Route Start Time Stop Time Status Last Admin Dose Admin Levofloxacin/ Dextrose 100 ml @ 100 mls/hr DAILY IV 01/08/24 10:00 01/08/24 10:14 100 MLS/HR Azithromycin 250 ml @ 125 mls/hr DAILY IV 01/08/24 10:00 01/08/24 10:59 125 MLS/HR Pantoprazole Sodium 40 mg DAILY PO 01/08/24 10:00 01/08/24 10:14 40 MG Rivaroxaban 20 mg DAILY PO 01/08/24 10:00 01/08/24 10:14 20 MG Cholecalciferol 50 unit DAILY PO 01/08/24 10:00 Patient Own Medication 1 % QID TD 01/07/24 22:00 Nystatin 1 applic BID TOP 01/07/24 22:00 01/08/24 10:15 1 APPLIC Hydroxyzine Pamoate 50 mg QPM PO 01/08/24 18:00 Albuterol 2.5 mg Q4HPRN PRN NEB 01/07/24 20:15 01/08/24 10:36 2.5 MG Ipratropium [place] 0.5 mg Q4HPRN PRN NEB 01/07/24 20:15 01/08/24 10:36 0.5 MG Lorazepam 0.5 mg Q6HP PRN PO 01/07/24 20:15 Al Hydrox/Mg Hydrox/Simethicone 30 ml Q6HP PRN PO 01/07/24 20:15 Docusate Sodium 100 mg BIDPRN PRN PO 01/07/24 20:15 Acetaminophen 650 mg Q6HP PRN PO 01/07/24 20:15 Temazepam 15 mg QHSP PRN PO 01/07/24 20:15 01/07/24 21:30 15 MG Acetaminophen/ Hydrocodone Bitart 1 tab Q4HP PRN PO 01/07/24 20:15 Ondansetron HCl 4 mg Q4HP PRN IV 01/07/24 20:15 Morphine Sulfate 2 mg Q4HPRN PRN IV 01/07/24 20:15 Oseltamivir Phosphate 75 mg Q12HR PO 01/08/24 22:00 01/13/24 21:59 Laboratory Results Laboratory Tests 01/08/24 04:49 Chemistry Test 01/07/24 15:24 01/08/24 04:49 Calcium Level 9.7 mg/dL (8.7-10.4) 9.5 mg/dL (8.7-10.4) Cardiac Markers Test 01/07/24 15:24 B-Type Natriuretic Peptide 59.28 pg/mL (0-100) Labs and/or images reviewed: Image(s) reviewed by me Assessment/Plan Assessment/Plan Impression: -acute hypoxic respiratory failure -COPD with exacerbation -community-acquired pneumonia, viral etiology with positive influenza A -asthma -obesity -obstructive sleep apnea Plan: -start Tamiflu, continue bacterial coverage with Rocephin and azithromycin -start scheduled bronchodilators q.6 hours, Pulmicort b.i.d. -titrate O2 supplementation to keep saturation greater than 93% -discontinue steroids -continue home medications -repeat labs and chest x-ray in a.m. Total time spent with patient discussing and formulating plan of care: 35 minutes. This medical document was created using an electronic medical record system with [employer] dictation system. Although this document has been carefully reviewed, there may still be some phonetic and typographical errors. These areas are purely typographical due to imperfections of the software programs, and do not reflect any compromise in the patient's medical care. Plan discussed with: Patient, Other (RN) My Orders Orders - TONI BREAUX NP Procedure Category Date Status Time Oseltamivir 75mg PHA 01/08/24 In Process Capsule (Tamiflu 75mg 22:00 Date of Service: Jan 08, 2024 Billing Provider: TONI BREAUX NP Common Visit Codes: [id number] INP/OBS CARE(HIGH) TONI BREAUX NP Jan 08, 2024 14:54
[2024-01-08] MEDS: HYDROcodone-ACET 5/325MG TAB PO PRN (17:42)
[2024-01-08 19:30] VITALS: PULSE 75; RESP 24; O2SAT 94; O2SAT 97
[2024-01-08] MEDS: IPRATROPIUM BROM 0.5 MG/2.5ML INH SOL NEB SCH (19:39)
[2024-01-08] MEDS: ALBUTEROL SULF 2.5 MG/0.5ML(0.5%) NEB SOLN NEB SCH (19:39)
[2024-01-08] MEDS: BUDESONIDE (INHALATION) 0.5 MG/2 ML NEB NEB SCH (19:40)
[2024-01-08 19:42] VITALS: PULSE 75; RESP 22; O2SAT 99
[2024-01-08] MEDS: OSELTAMIVIR 75 MG CAP PO SCH (23:46)
[2024-01-09] VITALS (14 sets, daily range): BP systolic 103–120; BP diastolic 53–73; PULSE 67–116; RESP 15–24; TEMP 98–99.4; O2SAT 90–99
--- NOTE | 2024-01-09 05:47 | DVH ---
CHEST RADIOGRAPH Indication:pna Technique: Single frontal view of the chest was obtained COMPARISON: XY CHEST PORTABLE on DOS: 01/07/24, XY CHEST PORTABLE on DOS: 03/17/23, XY CHEST PORTABLE on DOS: 03/14/23, XY CHEST PORTABLE on DOS: 01/07/24 FINDINGS: Lines and Tubes: None Lungs: No focal consolidation. Pleura: No effusion. No pneumothorax. Cardiomediastinal contours: Unremarkable Bones: No acute osseous abnormality. IMPRESSION: 1. No significant change.
[2024-01-09] MEDS: MORPHINE SULFATE INJ 2 MG/ml SYRG IV PRN (06:45)
[2024-01-09 07:31] LABS: Basophils # (auto) 0 10 ^3/uL (0-0.2); Basophils % (auto) 0.5 % (0.0-2.0); Eosinophils # (auto) 0 10 ^3/uL (0-0.8); Eosinophils % (auto) 0.2 % (0.0-7.0); Hematocrit 49.3 % (41.0-53.0); Hemoglobin 16.2 g/dL (13.5-17.5); Lymphocytes # (auto) 0.8 10 ^3/uL (0.4-5.4); Lymphocytes % (auto) 17.2 % (10.0-50.0); Mean Corpuscular Hemoglobin 27.3 pg (28.0-32.0); Monocytes # (auto) 0.5 10 ^3/uL (0-1.3); Monocytes % (auto) 12.3 % (0.0-12.0); Neutrophils # (auto) 3.1 10 ^3/uL (1.6-8.6); Neutrophils % (auto) 69.8 % (37.0-80.0); Nucleated Red Blood Cells % 0.1 %; Platelet Count (auto) 222 10^3/uL (140-450); Red Blood Cells 5.94 10^6/uL (4.5-5.90); Red Cell Distribution Width 14.2 % (11.8-14.3); White Blood Cell 4.4 10^3/uL (4.4-10.8)
[2024-01-09 07:39] LABS: Calcium 9.4 mg/dL (8.7-10.4); Carbon Dioxide 26 mmol/L (20-31)
[2024-01-09 07:41] LABS: Anion Gap 9 (5-15); Chloride 106 mmol/L (98-107); Sodium 141 mmol/L (136-145)
[2024-01-09 07:44] LABS: Glucose 87 mg/dL (74-106)
[2024-01-09 07:45] LABS: Blood Urea Nitrogen 15 mg/dL (9-23)
--- NOTE | 2024-01-09 09:39 | DVHPN2 ---
Subjective Patient continues to report having shortness of breath Reviewed: Care Plan, H&P, Labs, Medications Changes from previous H/P or p: No Changes Eyes: No Pain, No Vision change, No Conjunctivae inflammation, No Eyelid inflammation, No Other, No Redness ENT: No Ear pain, No Ear discharge, No Nose pain, No Nose discharge, No Nose congestion, No Mouth pain, No Mouth swelling, No Throat pain, No Throat swelling, No Other Cardiovascular: No Chest Pain, No Palpitations, No Orthopnea, No Paroxysmal Noc. Dyspnea, No Edema, No Lt Headedness, No Other Respiratory: No Cough, No Dry; Shortness of breath, SOB with excertion; No Wheezing, No Hemoptysis, No Pleuritic Pain, No Sputum, No Other Gastrointestinal: No Nausea, No Vomiting, No Abdominal Pain, No Diarrhea, No Constipation, No Melena, No Hematochezia, No Other Genitourinary: No Dysuria, No Frequency, No Incontinence, No Hematuria, No Retention, No Other Musculoskeletal: No other, No neck pain, No shoulder pain, No arm pain, No back pain, No hand pain, No leg pain, No foot pain Skin: No Rash, No Lesions, No Jaundice, No Bruising, No Other Objective Vitals Vital Signs Date Time Temp Pulse Resp B/P (MAP) Pulse Ox O2 Delivery O2 Flow Rate FiO2 01/09/24 06:45 85 25 106/61 01/09/24 06:24 99 01/09/24 06:18 Mask 6.0 01/09/24 06:18 50 01/09/24 05:00 98.0 98.0 Intake/Output Intake and Output 01/09/24 07:00 Intake Total 590 ml Output Total 250 ml Balance 340 ml Intake Oral 240 ml IV Total 350 ml Output Urine Total 250 ml General Appearance: Alert, Oriented X3, Cooperative, No acute distress, mild distress HEENT: Atraumatic, PERRLA Lungs: Other (Expiratory wheezing. Patient on simple mask at 6 liters/minutes) Cardiovascular: Normal S1, Normal S2 Abdomen: Normal bowel sounds, Soft, No tenderness Genitourinary: No Apparent Abnormalities Musculoskeletal: Normal sensory function, Normal motor function Psych/Mental Status: Mental status NL, Mood NL Medications Current Medications Medications Dose Ordered Sig/Neil Route Start Time Stop Time Status Last Admin Dose Admin Levofloxacin/ Dextrose 100 ml @ 100 mls/hr DAILY IV 01/08/24 10:00 01/09/24 09:14 100 MLS/HR Azithromycin 250 ml @ 125 mls/hr DAILY IV 01/08/24 10:00 01/08/24 10:59 125 MLS/HR Pantoprazole Sodium 40 mg DAILY PO 01/08/24 10:00 01/09/24 09:13 40 MG Rivaroxaban 20 mg DAILY PO 01/08/24 10:00 01/09/24 09:13 20 MG Cholecalciferol 50 unit DAILY PO 01/08/24 10:00 01/09/24 09:14 50 UNIT Patient Own Medication 1 % QID TD 01/07/24 22:00 Nystatin 1 applic BID TOP 01/07/24 22:00 01/08/24 10:15 1 APPLIC Hydroxyzine Pamoate 50 mg QPM PO 01/08/24 18:00 Lorazepam 0.5 mg Q6HP PRN PO 01/07/24 20:15 Al Hydrox/Mg Hydrox/Simethicone 30 ml Q6HP PRN PO 01/07/24 20:15 Docusate Sodium 100 mg BIDPRN PRN PO 01/07/24 20:15 Acetaminophen 650 mg Q6HP PRN PO 01/07/24 20:15 Temazepam 15 mg QHSP PRN PO 01/07/24 20:15 01/07/24 21:30 15 MG Acetaminophen/ Hydrocodone Bitart 1 tab Q4HP PRN PO 01/07/24 20:15 01/08/24 17:42 1 TAB Ondansetron HCl 4 mg Q4HP PRN IV 01/07/24 20:15 Morphine Sulfate 2 mg Q4HPRN PRN IV 01/07/24 20:15 01/09/24 06:45 2 MG Oseltamivir Phosphate 75 mg Q12HR PO 01/08/24 22:00 01/13/24 21:59 01/09/24 09:14 75 MG Albuterol 2.5 mg Q6HWA NEB 01/08/24 18:00 01/09/24 06:18 2.5 MG Ipratropium [place] 0.5 mg Q6HWA NEB 01/08/24 18:00 01/09/24 06:18 0.5 MG Budesonide 0.5 mg BID NEB 01/08/24 22:00 01/09/24 06:18 0.5 MG Laboratory Results Laboratory Tests 01/09/24 06:32 Chemistry Test 01/09/24 06:32 Calcium Level 9.4 mg/dL (8.7-10.4) Labs and/or images reviewed: Labs reviewed by me, Image(s) reviewed by me Assessment/Plan Assessment/Plan Impression: -acute hypoxic respiratory failure -COPD with exacerbation -community-acquired pneumonia, viral etiology with positive influenza A -asthma -obesity -obstructive sleep apnea Plan: events: Patient noted to be with oxygen saturation 90% on room air. Continues to have cough. Repeat labs and chest x-ray unremarkable. -continue Tamiflu. Deescalate antibiotic therapy to p.o. Levaquin -Scheduled bronchodilators q.6 hours, Pulmicort b.i.d. -titrate O2 supplementation to keep saturation greater than 93% -continue home medications -reassess for discharge tomorrow. Total time spent with patient discussing and formulating plan of care: 35 minutes. This medical document was created using an electronic medical record system with [employer] dictation system. Although this document has been carefully reviewed, there may still be some phonetic and typographical errors. These areas are purely typographical due to imperfections of the software programs, and do not reflect any compromise in the patient's medical care. Plan discussed with: Patient, Other (RN) My Orders Orders - TONI BREAUX NP Procedure Category Date Status Time Oseltamivir 75mg PHA 01/08/24 In Process Capsule (Tamiflu 75mg 22:00 Albuterol Medneb PHA 01/08/24 In Process (Ventolin Medneb) 18:00 Ipratropium Medneb PHA 01/08/24 In Process (Atrovent Medneb) 18:00 Budesonide PHA 01/08/24 In Process (Inhalation) 22:00 Chest Portable XY 01/09/24 Resulted 04:00 Hepatitis B Surface LAB 01/09/24 In Process Antibody 01:08 Hepatitis C Antibody LAB 01/09/24 In Process 01:08 Electrocardigram EKG 01/09/24 Logged 06:49 Levofloxacin Tablet PHA 01/09/24 Verified (Levaquin Tablet) 10:00 Date of Service: Jan 09, 2024 Billing Provider: TONI BREAUX NP Common Visit Codes: [id number] INP/OBS CARE(HIGH) TONI BREAUX NP Jan 09, 2024 09:39
[2024-01-09] MEDS ORDERED: levoFLOXacin 500 MG TAB PO SCH (10:00)
[2024-01-09] MEDS: hydrOXYzine 25 MG TAB or CAP PO SCH (22:14)
[2024-01-10] VITALS (16 sets, daily range): BP systolic 91–104; BP diastolic 52–71; PULSE 63–102; RESP 17–20; TEMP 97.9–99; O2SAT 91–98
[2024-01-10] MEDS: levoFLOXacin 500 MG TAB PO SCH (10:04)
[2024-01-10] MEDS ORDERED: TAMIFLU PO (14:56)
--- NOTE | 2024-01-10 15:08 | DVHDS2 ---
Discharge Summary Date of Admission Jan 07, 2024 at 20:02 Date of Discharge: Jan 10, 2024 Admitting Diagnosis Respiratory distress Labs/Diagnostic Data: Laboratory Results Test 01/09/24 06:32 01/07/24 18:58 01/07/24 15:24 White Blood Count 4.4 10^3/uL (4.4-10.8) Red Blood Count 5.94 10^6/uL (4.5-5.90) Hemoglobin 16.2 g/dL (13.5-17.5) Hematocrit 49.3 % (41.0-53.0) Mean Corpuscular Volume 83.0 fL (80.0-100.0) Mean Corpuscular Hemoglobin 27.3 pg (28.0-32.0) Mean Corpuscular Hemoglobin Concent 33.0 g/dL (32.0-36.0) Red Cell Distribution Width 14.2 % (11.8-14.3) Platelet Count 222 10^3/uL (140-450) Mean Platelet Volume 7.5 fL (6.9-10.8) Neutrophils (%) (Auto) 69.8 % (37.0-80.0) Lymphocytes (%) (Auto) 17.2 % (10.0-50.0) Monocytes (%) (Auto) 12.3 % (0.0-12.0) Eosinophils (%) (Auto) 0.2 % (0.0-7.0) Basophils (%) (Auto) 0.5 % (0.0-2.0) Neutrophils # (Auto) 3.1 10 ^3/uL (1.6-8.6) Lymphocytes # (Auto) 0.8 10 ^3/uL (0.4-5.4) Monocytes # (Auto) 0.5 10 ^3/uL (0-1.3) Eosinophils # (Auto) 0 10 ^3/uL (0-0.8) Basophils # (Auto) 0 10 ^3/uL (0-0.2) Nucleated Red Blood Cells 0.1 % Sodium Level 141 mmol/L (136-145) Potassium Level 4.0 mmol/L (3.5-5.1) Chloride Level 106 mmol/L (98-107) Carbon Dioxide Level 26 mmol/L (20-31) Anion Gap 9 (5-15) Blood Urea Nitrogen 15 mg/dL (9-23) Creatinine 1.00 mg/dL (0.700-1.30) Glomerular Filtration Rate Calc 98 mL/min (>90) BUN/Creatinine Ratio 15.0 (10.0-20.0) Serum Glucose 87 mg/dL (74-106) Calcium Level 9.4 mg/dL (8.7-10.4) Influenza Type A Antigen Positive (Negative) Influenza Type B Antigen Negative (Negative) SARS-CoV-2 Antigen (Rapid) Negative (NEGATIVE) B-Type Natriuretic Peptide 59.28 pg/mL (0-100) Other Laboratory Tests 01/09/24 06:32 Brief Hx & Hospital Course: Patient was a 38-year-old male brought in by ambulance after being found with acute shortness of breath. Patient had positive influenza a swab. Patient was started on Tamiflu. He was also noted to have hypoxic respiratory failure requiring O2 supplementation up to 6 liters/minute. Patient was also started on empiric antibiotic therapy for bacterial pneumonia. Bronchodilators were provided. Patient has been weaned off oxygen. Patient will be discharged home and follow up with the PCP in 1-2 weeks. He will be continued on Tamiflu 75 mg p.o. twice a day for an additional three days. He is instructed to continue all previous home medications. All questions answered. Physical exam General: Alert and Oriented x3. No acute distress. Well-nourished. Eyes: EOMI. Anicteric. HENT: Moist mucous membranes. Lungs: Clear to auscultation bilaterally. No accessory muscle use. Cardiovascular: Regular rate and rhythm. No murmur. No JVD. Abdomen: Soft, non-tender and non-distended. No palpable masses. Extremities: No edema. Non-tender. Skin: No rashes or lesions. Warm. Neurologic: No focal neurological deficits. CN II-XII grossly intact, but not individually tested. Psychiatric: Cooperative. Appropriate mood and affect. Total time spent with patient discussing and formulating plan of care: 35 minutes. This medical document was created using an electronic medical record system with [employer] system. Although this document has been carefully reviewed, there may still be some phonetic and typographical errors. These areas are purely typographical due to imperfections of the software programs, and do not reflect any compromise in the patient's medical care. Condition at Discharge: Fair Final Diagnosis/Problems List Acute hypoxic respiratory failure Secondary Diagnosis: -COPD with exacerbation -community-acquired pneumonia, viral etiology with positive influenza A -asthma -obesity -obstructive sleep apnea Discharge Disposition: Home Discharge Instruct/Medications Diet: Cardiac 2g Na,low cholest Activity: No Restrictions, As Tolerated Follow Up/Referral: PcP in 1-2 weeks Medications: Tamiflu 75 mg p.o. bid x3 days 36 Discharge Statement: "Patient was advised to return to the ER or call 911 if any headaches, dizziness, shortness of breath, chest pain, abdominal pain, bleeding, fevers, or worsening of medical condition. Patient was counseled about treatment plan, medications, possible side effects, patientverbalized understanding. All questions were answered to the best of my ability. This discharge took greater then 30 minutes in planning, reviewing documentation, counseling the patient, and discussing with other team members." ASSESSMENT ASSESSMENT Assessment Acute hypoxic respiratory failure Date of Service: Jan 10, 2024 Billing Provider: TONI BREAUX NP Common Visit Codes: 71323-PMC/OBS DISCH DAY >30min TONI BREAUX NP Jan 10, 2024 15:08
[2024-01-12 08:45] LABS: Hepatitis B Surface Antibody Negative (Negative)
[2024-01-12 09:19] LABS: Hepatitis C Antibody Negative (Negative)
== END 2024-01-10 19:35 | disposition home or self-care (01) | DRG 720 ==
LOC: ER 14:51 → EDSEX 14:51 → EDBD 14:51 → OVERFLOW 20:02 → CENTRAL 01-08 19:00
PROVIDERS: ADMIT Hospitalist; ATTEND Nurse Practitioner Acute Care
DX: A41.89 Other specified sepsis (principal); J96.01 Acute respiratory failure with hypoxia; J10.08 Influenza due to other identified influenza virus with other specified pneumonia; J15.9 Unspecified bacterial pneumonia; J12.89 Other viral pneumonia; J44.0 Chronic obstructive pulmonary disease with (acute) lower respiratory infection; I50.9 Heart failure, unspecified; J44.1 Chronic obstructive pulmonary disease with (acute) exacerbation; E66.01 Morbid (severe) obesity due to excess calories; E11.9 Type 2 diabetes mellitus without complications; J98.4 Other disorders of lung; G47.33 Obstructive sleep apnea (adult) (pediatric); Z87.891 Personal history of nicotine dependence; Z79.4 Long term (current) use of insulin; Z68.38 Body mass index [BMI] 38.0-38.9, adult; B97.89 Other viral agents as the cause of diseases classified elsewhere
CPT/HCPCS: 36415; 71045; 80048; 83880; 85025; 86706; 86803; 87426; 87804; 94640; 99291; G0378; J1956

== ENCOUNTER 2024-09-05 18:13 | Emergency (ER) | payer OTHER ==
[~2024-09-05] VITALS: Ht 162.6 cm; Wt 96.0 kg
[~2024-09-05 18:13] MED LIST changes: +TAMIFLU PO
[2024-09-05] MEDS ORDERED: ACET500T58 PO (18:38)
[2024-09-05] MEDS ORDERED: DOXY100C79 PO (18:38)
--- NOTE | 2024-09-05 18:38 | ED.PDOC ---
Musculoskeletal HPI Comments 39-year-old male presents to ER with complaints of left foot pain x2 months. Patient with past medical history significant for diabetes reports that he has been experiencing pain/swelling/redness surrounding nailbed of left great toe x2 months with associated bloody purulent drainage x1 day. He rates his current pain an 8/10 to left great toe without radiation. Denies use of medications for current symptoms and presents to ER ambulatory on arrival, with steady gait, in no distress with vitals stable and blood sugar noted to be 86 on arrival. Denies fever, body aches, chills, numbness/tingling, trauma/injury or any further symptoms/complaints Time Seen by MD: 18:21 Primary Care Provider: PACO Reviewed Notes: Nurses Notes, Medications, Allergies Allergies: Coded Allergies: Iodine (Verified Allergy, Unknown, 01/17/18) Sulfa Antibiotics (Verified Allergy, Unknown, 01/17/18) Home Meds Active Scripts Acetaminophen (Acetaminophen) 500 Mg Tab, 500 MG PO Q4HPRN, #30 TAB 0 Refills Prov:SHANIA CRUZ 09/05/24 Doxycycline (Monohydrate) (Doxycycline) 100 Mg Cap, 100 MG PO BID for 14 Days, #28 CAP 0 Refills Prov:SHANIA CRUZ 09/05/24 Oseltamivir Phosphate (Tamiflu) 75 Mg Cap, 75 MG PO Q12HR for 3 Days, #6 CAP Prov:TONI BREAUX [employer]ICE PRESIDENT [employer] 01/10/24 Mupirocin (Pseudomonas Fluores (Mupirocin) 2 % Oin, 1 APPLIC EX TID, #15 GM Prov:LEFTY ALEGRIA [employer]ICE [employer]IDENT [employer] 06/26/23 Cephalexin Monohydrate (Cephalexin) 500 Mg Cap, 1 CAP PO QID, #28 CAP Prov:PRACHI JONES 05/22/23 Methylprednisolone (Medrol Dosepak) 4 Mg Prabhakar, 4 MG PO UD, #21 TAB UAD Prov:LIU GRAY MD 03/17/23 Azithromycin (Zithromax) 250 Mg Tab, 250 MG PO DAILY, #6 TAB take 2 tabs first day, then 1 tab daily until finish Prov:LIU GRAY MD 03/17/23 Metformin Hydrochloride (Metformin Hcl) 500 Mg Tab, 1 TAB PO BID, #60 TAB 3 Refills Prov:IVETTE CONTRERAS MD 08/13/22 Nystatin (Nystatin) 1 Pow Pow, 1 POW XX BID for 10 Days, #60 POW Prov:AMALIA PATINO MD 07/31/22 Reported Medications Hydroxyzine Hcl (Hydroxyzine Hcl) 50 Mg Tab, 1 TAB PO 03/15/23 Cholecalciferol (Vitamin D3) 20 Mcg Tab, 50 MCG PO DAILY, TAB 03/15/23 Diclofenac Sodium (Topical) (Diclofenac Sodium) 1 % Gel, 1 % TD QID, GEL 03/15/23 Fluticasone-Salmeterol (Advair Diskus 250/50) 1 Puff Ih, 1 PUFF INH BID, #3 INHALER 3 Refills 05/22/22 Nystatin (Mouth-Throat) (Mycostatin (Mouth-Throat)) 500,000 Units/5 Ml Ss, [id number] 05/22/22 Rivaroxaban (Xarelto Tablet) 20 Mg Tb, 1 TAB PO DAILY 05/22/22 Pantoprazole Sodium Sesquihydr (Pantoprazole Sodium) 40 Mg Tab, 1 TAB PO DAILY 05/22/22 Albuterol Sulfate (Albuterol Sulfate) 0.5 % Neb, 0.5 % NEB PRN PRN for SHORTNESS OF BREATH 06/30/18 Albuterol Sulfate (VENTOLIN MDI) 90 Mcg Ih, 90 MCG IN PRN PRN for SHORTNESS OF BREATH for 30 Days, MCG 06/30/18 Information Source: Patient Last Tetanus: Unknown Past Medical History PAST MEDICAL HISTORY: Asthma, CHF, COPD, DM Surgical History: Denies all surgeries Family History Family History: Unknown Social History Smoker: Quit Greater Than 1 Year, Cigarettes Alcohol: Sober Drugs: Denies Drug Use Lives In: Home Constitutional: denies: chills, diaphoresis, fatigue, fever, malaise, sweats, weakness, others EENTM: denies: blurred vision, double vision, ear bleeding, ear discharge, ear drainage, ear pain, ear ringing, eye pain, eye redness, hearing loss, mouth pain, mouth swelling, nasal discharge, nose bleeding, nose congestion, nose pain, photophobia, tearing, throat pain, throat swelling, voice changes, others Respiratory: denies: cough, hemoptysis, orthopnea, SOB at rest, shortness of breath, SOB with excertion, stridor, wheezing, others Cardiovascular: denies: chest pain, dizzy spells, diaphoresis, Dyspnea on exertion, edema, irregular heart beat, left arm pain, lightheadedness, palpit ations, PND, syncope, others Gastrointestinal: denies: abdomen distended, abdominal pain, blood streaked b owels, constipated, diarrhea, dysphagia, difficulty swallowing, hematemesis, melena, nausea, poor appetite, poor fluid intake, rectal bleeding, rectal pain, vomiting, others Genitourinary: denies: burning, dysuria, flank pain, frequency, hematuria, incontinence, penile discharge, penile sore, pain, testicle pain, testicle swelling, urgency, others Neurological: denies: dizziness, fainting, headache, left sided numbness, left sided weakness, numbness, paresthesia, pre-existing deficit, right sided numbness, right sided weakness, seizure, speech problems, tingling, tremors, weakness, others Musculoskeletal: reports: others (As stated in HPI) Integumetry: reports: others (As stated in HPI) Allergic/Immunocompromised: denies: Difficulty Healing, Frequent Infections, Hives, Itching, others Hematologic/Lymphatic: denies: anemia, blood clots, easy bleeding, easy bruising, swollen glands, others Endocrine: denies: excessive hunger, excessive sweating, excessive thirst, excessive urination, flushing, intolerance to cold, intolerance to heat, unexplained weight gain, unexplained weight loss, others Psychiatric: denies: anxiety, bipolar disorder, depression, hopeless, panic disorder, schizophrenia, sleepless, suicidal, others Physical Exam General Appearance: No Apparent Distress HEENT: PERRL/EOMI Neck: Full Range of Motion, Non-Tender, Normal Respiratory: Chest Non-Tender, Lungs Clear, No Accessory Muscle Use, No Respiratory Distress, Normal Breath Sounds Cardiovascular: No Murmur, No Gallop, Regular Rate/Rhythm Breast Exam: Deferred Gastrointestinal: NOT DONE Genitalia: Deferred Pelvic: Deferred Rectal: Deferred Extremities: Normal capillary refill, Normal range of motion Musculoskeletal : Extremity Location: Great Toe (Mild swelling/erythema/TTP noted surrrounding nailbed of left great toe. No fluctuance/red streaking/drainage/further skin changes noted. No other TTP to left foot noted. Patient able to move all toes of left foot. Pulses intact. Steady gait noted) Neurologic: Alert, measuring clerk II-XII nml as Tested, No Motor Deficits, Normal Affect, Normal Mood, No Sensory Deficits Cerebellar Function: Normal Reflexes: Normal Skin: Dry, Warm Peripheral Pulses: 2+ dorsalis pedis (R), 2+ dorsalis pedis (L), 2+ Radial (R), 2+ Radial (L), 2+ Brachial (R), 2+ Brachial (L) Lymphatic: No Adenopathy Was a procedure done? Was a procedure done?: No Sedation Sedation?: No Differential Diagnosis EXT Differential Diagnosis: Fracture, Dislocation, Gout, Neurovascular injury, Other (Osteomyelitis) X-Ray, Labs, Meds, VS Vital Signs Date Time Temp Pulse Resp B/P (MAP) Pulse Ox O2 Delivery O2 Flow Rate FiO2 09/05/24 18:40 Room Air* 0 21 09/05/24 18:40 98.7 79 16 135/82 (99) 96 98.7 09/05/24 18:31 98.6 79 16 135/82 (99) 96 98.6 Lab Test 09/05/24 18:32 09/05/24 18:28 Range/Units White Blood Count 6.9 4.4-10.8 10^3/uL Red Blood Count 5.98 H 4.5-5.90 10^6/uL Hemoglobin 16.6 13.5-17.5 g/dL Hematocrit 49.6 41.0-53.0 % Mean Corpuscular Volume 82.9 80.0-100.0 fL Mean Corpuscular Hemoglobin 27.8 L 28.0-32.0 pg Mean Corpuscular Hemoglobin Concent 33.5 32.0-36.0 g/dL Red Cell Distribution Width 13.8 11.8-14.3 % Platelet Count 280 140-450 10^3/uL Mean Platelet Volume 7.1 6.9-10.8 fL Neutrophils (%) (Auto) 65.0 37.0-80.0 % Lymphocytes (%) (Auto) 21.8 10.0-50.0 % Monocytes (%) (Auto) 7.5 0.0-12.0 % Eosinophils (%) (Auto) 4.4 0.0-7.0 % Basophils (%) (Auto) 1.3 0.0-2.0 % Neutrophils # (Auto) 4.5 1.6-8.6 10 ^3/uL Lymphocytes # (Auto) 1.5 0.4-5.4 10 ^3/uL Monocytes # (Auto) 0.5 0-1.3 10 ^3/uL Eosinophils # (Auto) 0.3 0-0.8 10 ^3/uL Basophils # (Auto) 0.1 0-0.2 10 ^3/uL Nucleated Red Blood Cells 0.2 % Erythrocyte Sedimentation Rate 2 0-20 mm/hr POC Glucose 86 70-106 mg/dl Current Medications Medications (Trade) Dose Ordered Sig/Neil Route Start Time Stop Time Status Last Admin Diphtheria/ Tetanus/Acell Pertussis (Boostrix T-Dap) 0.5 ml ONCE ONCE IM 09/05/24 18:30 09/05/24 18:31 DC 09/05/24 18:50 Ceftriaxone Sodium (Rocephin) 1,000 mg ONCE ONCE IM 09/05/24 18:30 09/05/24 18:31 DC 09/05/24 18:49 Ibuprofen (Motrin Tablet) 800 mg ONCE ONCE PO 09/05/24 18:30 09/05/24 18:31 DC 09/05/24 18:49 PATIENT: MILTON URBANACCT: [id number]: [id number] : 1985 LOC: ER ROOM / BED: / AGE / SEX: 39 / M ADM STATUS: REG ER SERVICE 1824 ORDERING PHYSICIAN: SHANIA CRUZ PROCEDURE(s): LTOE1 - L 1ST TOE XRAY REASON: Right great toe pain ORDER NUMBER(s): [id number], ACCESSION NUMBER(s): [id number] CLINICAL INDICATION: Right great toe pain TECHNIQUE: 3 radiographic views of the left foot were obtained. Comparison: None FINDINGS/IMPRESSION: Small calcification is noted in the lateral soft tissues between the 1st and 2nd toe at the level of the metatarsal phalangeal joint of the great toe. This may represent small avulsion fracture. Correlate clinically for trauma in this area. There is an area of decreased bone density in the distal tuft of the great toe. Can not exclude infection. If of clinical concern recommend MRI. There is a punctate calcification over the dorsal soft tissues of the mid portion of the distal phalanx of the left great toe. This may be in the nailbed or represent a small foreign body. ATED BY: DEMI NORMAN Jr., DO DICTATED DATE/TIME: 09/05/241853 SIGNED BY: DEMI NORMAN Jr., SIGNED DATE/TIME: 09/05/241853 CC: Left 1st toe x-ray reviewed CBC reviewed without any significant abnormalities ESR reviewed-normal Rocephin 1 g IM ordered Tdap 0.5 mL IM ordered Ibuprofen 800 mg p.o. ordered Patient neurovascularly intact and reported improvement in symptoms prior to discharge Wound care/cleaning discussed and advised Advised to follow up with PCP and production control analyst in 1-2 days Patient verbalized understanding and agreeable with current plan of care Advised to return to ER immediately if symptoms worsen Images Reviewed?: Images reviewed and evaluated by me Time of 1ST Reevaluation: 18:30 Reevaluation 1ST: N/A Patient Education/Counseling: Diagnosis, Treatment, Prognosis, Need For Follow Up Family Education/Counseling: No Family Present Departure 1 Departure Time of Disposition: 18:22 Impression: Primary Impression: Cellulitis of great toe of left foot Disposition: 01 HOME / SELF CARE / HOMELESS Condition: Stable e-Prescriptions Acetaminophen (Acetaminophen) 500 Mg Tab 500 MG PO Q4HPRN, #30 TAB 0 Refills Prov: SHANIA CRUZ 09/05/24 Doxycycline (Monohydrate) (Doxycycline) 100 Mg Cap 100 MG PO BID for 14 Days, #28 CAP 0 Refills Prov: SHANIA CRUZ 09/05/24 Discharged With: Self Critical Care Note Critical Care Time?: No Stability Stability form required: No Heart Score Heart Score: Heart Score Response (Comments) Value History N/A 0 EKG N/A 0 Age N/A 0 Risk Factors N/A 0 Troponin N/A 0 Total 0 SHANIA CRUZ Sep 05, 2024 18:38
[2024-09-05 18:40] VITALS: BP 135/82; PULSE 79; RESP 16; TEMP 98.7; O2SAT 96
[2024-09-05 18:41] LABS: Hematocrit 49.6 % (41.0-53.0); Hemoglobin 16.6 g/dL (13.5-17.5); Mean Corpuscular Hemoglobin 27.8 pg (28.0-32.0); Mean Corpuscular Volume 82.9 fL (80.0-100.0); Nucleated Red Blood Cells % 0.2 %
[2024-09-05] MEDS: IBUPROFEN 800 MG TAB PO ONE (18:49)
[2024-09-05] MEDS: cefTRIAXone SOD 1,000 MG VL IM ONE (18:49)
[2024-09-05] MEDS: TETANUS-DIPTH-ACEL PERTUSSIS 0.5ML SYR Tdap IM ONE (18:50)
--- NOTE | 2024-09-05 18:57 | DVH ---
CLINICAL INDICATION: Right great toe pain TECHNIQUE: 3 radiographic views of the left foot were obtained. Comparison: None FINDINGS/IMPRESSION: Small calcification is noted in the lateral soft tissues between the 1st and 2nd toe at the level of the metatarsal phalangeal joint of the great toe. This may represent small avulsion fracture. Correla te clinically for trauma in this area. There is an area of decreased bone density in the distal tuft of the great toe. Can not exclude infec tion. If of clinical concern recommend MRI. There is a punctate calcification over the dorsal soft tissues of the mid portion of the distal phala nx of the left great toe. This may be in the nailbed or represent a small foreign body.
== END 2024-09-05 19:55 | disposition home or self-care (01) ==
LOC: ER 18:13
DX: L03.032 Cellulitis of left toe (principal); J45.909 Unspecified asthma, uncomplicated; E11.9 Type 2 diabetes mellitus without complications; I50.9 Heart failure, unspecified; M85.80 Other specified disorders of bone density and structure, unspecified site; Z23 Encounter for immunization; Z79.01 Long term (current) use of anticoagulants; Z79.51 Long term (current) use of inhaled steroids; Z79.52 Long term (current) use of systemic steroids; Z79.899 Other long term (current) drug therapy; Z88.2 Allergy status to sulfonamides; Z88.8 Allergy status to other drugs, medicaments and biological substances
CPT/HCPCS: 36415; 73660; 82947; 85025; 85652; 90471; 90715; 96372; 99284; J0696; 82962